=== PATIENT | female | born 1965 | race Caucasian/White ===

== ENCOUNTER 2019-03-28 10:18 | Emergency (ER) | payer MEDICARE, SELFPAY ==
[2019-03-28] VITALS (8 sets, daily range): BP systolic 117–164; BP diastolic 64–127; PULSE 79–91; RESP 18–24; TEMP 36.4; O2SAT 96–99; BMI 31.6
--- NOTE | 2019-03-28 10:30 | CTR_ITS ---
PROCEDURE INFORMATION: Exam: CT Abdomen And Pelvis With Contrast Exam date and time: 03/28/2019 10:31 AM Age: 54 years old Clinical indication: Constipation and other: Cant pee; Prior surgery; Surgery date: 6+ months; Surgery type: ; Additional info: Abdominal pain; Reports urinary retention; Constipation can't pee or poop for multiple days now TECHNIQUE: Imaging protocol: Computed tomography of the abdomen and pelvis with intravenous contrast. Total DLP: 1252.99 mGy-cm Radiation optimization: All CT scans at this facility use at least one of these dose optimization techniques: automated exposure control; mA and/or kV adjustment per patient size (includes targeted exams where dose is matched to clinical indication); or iterative reconstruction. Contrast material: OMNI 300; Contrast volume: 95 ml; Contrast route: IV; COMPARISON: CT Abdomen/Pelvis Renal [id number] 09/21/2017 9:26 AM FINDINGS: Lungs: No acute basilar lung consolidation. Liver: There is fatty change involving the liver parenchyma. Gallbladder and bile ducts: There is cholelithiasis. No gallbladder wall thickening. No pericholecystic fluid or inflammation. No biliary ductal dilatation. Pancreas: No pancreatic mass. No peripancreatic inflammation. No pancreatic ductal dilation. Spleen: The spleen is homogeneous and is not enlarged. Adrenals: No adrenal mass. Kidneys and ureters: No hydronephrosis or hydroureter. No renal or ureteral calculus. There is a 6 mm low-attenuation lesion in the right kidney, likely due to a small cyst. Stomach and bowel: No bowel obstruction. There is mural low-attenuation involving the proximal colon from the cecum to the hepatic flexure which can be due to chronic inflammatory bowel disease. No acute colitis or enteritis. No bowel obstruction. No diverticulitis. There is a moderate amount of stool within the colon and rectum. Appendix: The appendix has a normal caliber with no wall thickening. No periappendiceal stranding. Intraperitoneal space: No ascites or pneumoperitoneum. Vasculature: No abdominal aortic aneurysm. No iliac or common femoral artery aneurysm. The mesenteric arteries are patent. The mesenteric, portal, and hepatic veins are patent. Lymph nodes: No enlarged lymph nodes. Bladder: No urinary bladder calculus or wall thickening. The bladder is not distended. Reproductive: The uterus is located to the left of midline. There is a dominant mass in the uterus measuring approximately 5.8 cm in size. This is felt to have been present before and is most likely due to uterine leiomyoma. Bones/joints: Disc degeneration and facet arthropathy in the lumbar spine most prominent at L5-S1. Bilateral hip joint degeneration. Soft tissues: Unremarkable. CT/CT abdomen pelvis w con* [id number] IMPRESSION: 1. No bowel obstruction, acute colitis or diverticulitis. 2. No urinary tract calculus or obstruction. 3. Cholelithiasis without acute cholecystitis. COMMENT: Consistent with the [employer]'s Incidental Findings Committee white paper (J Am Rafia Radiol 2018): Any incidental cystic renal lesion classified in this report as too small to characterize or simple appearing is likely a benign cyst. No follow-up imaging is recommended for these lesions per consensus recommendations based on imaging criteria. Radiation Dose CTDIVOL = (mGy): DLP = 1252.99 (mGy-cm)
--- NOTE | 2019-03-28 10:39 | PC.NURSE ---
Pt to CT
[2019-03-28 10:46] LABS: Basophils % 0.3 %; Eosinophils # 0.1 10^3/uL (0.0-0.8); Eosinophils % 2.2 %; Hematocrit 40.8 % (37.0-47.0); Hemoglobin 13.2 g/dL (11.5-15.3); Lymphocytes # 1.3 10^3/uL (0.8-4.8); Lymphocytes % 20.2 %; Mean Corpuscular HGB Conc 32.4 g/dL (30.0-36.0); Mean Corpuscular Volume 89.7 fL (81-99); Mean Platelet Volume 10.8 fL (7.4-10.4); Monocytes # 0.3 10^3/uL (0.2-0.9); Neutrophils # 4.5 10^3/uL (1.8-7.7); Nucleated Red Blood Cells % 0 %; Platelet Count 250 10^3/cmm (130-400); Red Blood Count 4.55 10^6/uL (4.1-5.3); Red Cell Distribution Width 13.3 % (12.1-15.1); White Blood Count 6.3 10^3/uL (4.0-10.0)
[2019-03-28 11:00] LABS: Alanine Aminotransferase 17 U/L (0-33); Albumin Level 4.4 g/dL (3.5-5.2); Alkaline Phosphatase 84 IU/L (35-105); Anion Gap 13.1 (5-19); Aspartate Amino Transferase 15 U/L (0-32); Blood Urea Nitrogen 19 mg/dL (6-20); Calcium 9.5 mg/dL (8.5-10.5); Carbon Dioxide 27 mmol/L (22-29); Chloride 103 mmol/L (98-107); Globulin 2.5 g/dL (1.3-4.6); Glomerular Filtration Rate 86.9 mL/min (90-130); Glucose 151 mg/dL (74-109); Lipase 233 U/L (13-60); Potassium 4.1 mmol/L (3.5-5.1); Sodium 139 mmol/L (136-145); Total Bilirubin 0.3 mg/dL (0.15-1.2); Total Protein 6.9 g/dL (6.6-8.7)
[2019-03-28] MEDS: iohexol 300 mg/mL 100 mL Btl IV (11:06)
[2019-03-28 11:51] LABS: Add Urine Microscopic? NO
[2019-03-28 11:57] LABS: Bilirubin Urine Neg (NEGATIVE); Blood Urine Neg (Negative); Glucose Urine UA Norm (Normal); Ketones Urine Negative (Negative); Leukocyte Esterase Urine Negative (Negative); Nitrate Urine Negative (Negative); Protein Urine Neg (Negative); Urine Appearance Clear (CLEAR); Urine Color Straw (Yellow); Urobilinogen Urine Norm (Negative); pH Urine 5 (5-7)
--- NOTE | 2019-03-28 12:49 | USR_ITS ---
PROCEDURE INFORMATION: Exam: US Pelvis Complete, Transabdominal Exam date and time: 03/28/2019 2:00 PM Age: 54 years old Clinical indication: Pelvic pain; Additional info: R uterine mass TECHNIQUE: Imaging protocol: Real-time transabdominal pelvic ultrasound with image documentation. Complete exam. COMPARISON: US pelvic with transvaginal 06/17/2017 10:14 AM FINDINGS: Uterus/cervix: Uterus measures 12.4 x 7.2 by 7.8 cm. There is a 4.9 x 4.4 cm heterogeneous, predominantly hypoechoic lesion in the uterine fundus consistent with a fibroid. Right adnexa: Right ovary is not optimally visualized secondary to body habitus of the patient. No abnormalities are seen. Measurements were not obtained. Left adnexa: Left ovary is not optimally visualized secondary to body habitus the. No abnormalities are seen. Measurements were not obtained. Free fluid: None. Bladder: There is a Georges catheter in the bladder. Other findings: Technically difficult study secondary to the body habitus of the patient. US/US pelvic with transvaginal IMPRESSION: There is a 4.9 cm uterine fibroid in the fundal region. Technically difficult study secondary to the body habitus of the patient. Ovaries were not well seen.
--- NOTE | 2019-03-28 14:15 | ED_ITS ---
HPI - General Adult General: Chief complaint: General Medical Stated complaint: CANT PEE OR BM Time Seen by Provider: 03/28/19 10:19 Source: patient Mode of arrival: ambulatory Limitations: no limitations History of Present Illness: HPI narrative: Patient is a 54-year-old female who presents to ED today with complaints of not being able to urinate over the past 2 days; she states she is able to dribble a small amount; patient feels as if she needs to urinate but cannot; she does not complain of burning with urination, abnormal urine color or odor; she also states she is having difficulty with bowel movements and again feels like she needs to go but cannot; she complains of lower abdominal pain; no flank pain; no fever/chills Onset (ago): day(s) Location: abdomen Radiation: non-radiation Pain Consistency: constant Relieving factors: none Exacerbating factors: none Associated symptoms: Deny chest pain, dyspnea, headache(s), malaise, nausea, rash, palpitations, syncope or vomiting Treatments prior to arrival: none Review of Systems Const: Denies: fever, chills, body aches, change in appetite, fatigue or malaise Eyes: Denies: change in vision or blurry vision Card: Denies: chest pain, palpitations, irregular heart rhythm, lightheadedness, syncope or shortness of breath on exertion Resp: Denies: shortness of breath, productive cough or pain on inspiration GI: Reports: abdominal pain and constipation; Denies: nausea, vomiting, vomiting blood, difficulty swallowing, heartburn/indigestion, diarrhea, painful bowel movements, rectal pain, rectal swelling, blood in stool, black tarry stool or white/light colored stool : Reports: difficulty urinating; Denies: flank pain, painful urination, urinary frequency, urinary urgency, urinary hesitancy, urinary incontinence, vaginal bleeding, vaginal discharge or pelvic pain Musc: Denies: neck pain, back pain or joint pain Skin/Breast: Denies: rash Neuro: Denies: headache PFSH ED PFSH: Statuses (acute, chronic, etc) shown below reflect problem list status as previously entered and may not be historically accurate Social History Smoking and tobacco status: current every day smoker Female Reproductive History: Date of last menstrual period: 03/26/19 Physical Exam Const: COMMON NORMALS: no apparent distress, oriented x3, no limitations, alert and well nourished HENMT: COMMON NORMALS: normocephalic and head/scalp atraumatic HEAD & SCALP: normocephalic and atraumatic Neck/C-Spine: COMMON NORMALS: full ROM, no lymphadenopathy, supple and no meningeal signs Resp: COMMON NORMALS: normal respiratory effort and clear to auscultation bilaterally AUSCULTATION: clear to auscultation bilaterally Cardio: COMMON NORMALS: regular rate and regular rhythm RATE: regular rate RHYTHM: regular rhythm GI: COMMON NORMALS: normal to inspection, nondistended, normoactive bowel sounds, soft to palpation and no hepatosplenomegaly AUSCULTATION: Yes normoactive bowel sounds PALPATION: Yes soft, Yes tender (lower abdomen ) and Yes no hepatosplenomegaly OTHER: distended bladder : COMMON NORMALS: Yes no CVA tenderness BLADDER/KIDNEY EXAM: Yes no CVA tenderness Back/Pelvis: COMMON NORMALS: no CVA tenderness and thoracic and lumbar spine normal to inspection Extremity: COMMON NORMALS: normal to inspection Neuro: COMMON NORMALS: oriented x3 SENSORIUM/ORIENTATION: Yes alert MENINGEAL SIGNS: Yes no meningeal signs Skin: COMMON NORMALS: no rashes or lesions noted GENERAL SKIN EXAM: no rashes or lesions noted Course ED course: pt bladder scanned and showed approximately 470ml of urine present in bladder Vital Signs: Vital signs: Vital Signs Temperature 97.5 F L 03/28/19 10:22 Pulse Rate 85 03/28/19 15:52 Respiratory Rate 18 03/28/19 15:52 Blood Pressure 144/83 03/28/19 15:52 Pulse Oximetry 96 03/28/19 15:52 MDM - General Adult MDM Narrative: Medical decision making narrative: Labs all appear benign today; she does have an elevated lipase however does not have pain to her left upper quadrant and there is no signs of pancreatitis on her CT scan; there is no infection present on her UA; patient does have a large uterine mass present on her CT scan that has been present previously; I spoke to the radiologist who thought that mass was too superior to be causing a urinary outlet obstruction; Jesus Alberto choi was placed here due to her urinary retention; we will have case management set her up with Dr. Smith for further evaluation; a referral to [facility] may be recommended if he feels uterine mass is contributing to her retention. Lab Data: Labs: Lab Results 03/28/19 03/28/19 03/28/19 Range/Units 10:38 10:38 11:15 WBC 6.3 (4.0-10.0) 10^3/ uL RBC 4.55 (4.1-5.3) 10^6/u L Hgb 13.2 (11.5-15.3) g/dL Hct 40.8 (37.0-47.0) % MCV 89.7 (81-99) fL MCH 29.0 (28.0-34.0) pg MCHC 32.4 (30.0-36.0) g/dL RDW 13.3 (12.1-15.1) % Plt Count 250 (130-400) 10^3/c mm MPV 10.8 H (7.4-10.4) fL Neut % (Auto) 72.0 % Lymph % (Auto) 20.2 % [place] % (Auto) 5.0 % Eos % (Auto) 2.2 % Baso % (Auto) 0.3 % Neut # (Auto) 4.5 (1.8-7.7) 10^3/u L Lymph # (Auto) 1.3 (0.8-4.8) 10^3/u L [place] # (Auto) 0.3 (0.2-0.9) 10^3/u L Eos # (Auto) 0.1 (0.0-0.8) 10^3/u L Baso # (Auto) 0.0 (0.0-0.1) 10^3/u L Nucleated RBC % (a uto) 0 % Nucleated RBCs # 0.0 /100WBC Sodium 139 (136-145) mmol/L Potassium 4.1 (3.5-5.1) mmol/L Chloride 103 (98-107) mmol/L Carbon Dioxide 27 (22-29) mmol/L Anion Gap 13.1 (5-19) BUN 19 (6-20) mg/dL Creatinine 0.7 (0.5-0.9) mg/dL GFR Calculation 86.9 L (90-130) mL/min Glucose 151 H (74-109) mg/dL Calcium 9.5 (8.5-10.5) mg/dL Total Bilirubin 0.3 (0.15-1.2) mg/dL AST 15 (0-32) U/L ALT 17 (0-33) U/L Alkaline Phosphata se 84 (35-105) IU/L Total Protein 6.9 (6.6-8.7) g/dL Albumin 4.4 (3.5-5.2) g/dL Globulin 2.5 (1.3-4.6) g/dL Lipase 233 H (13-60) U/L Urine Color Straw (Yellow) Urine Appearance Clear (CLEAR) Urine pH 5 (5-7) Ur Specific Gravit y 1.020 (1.005-1.030) Urine Protein Neg (Negative) Urine Glucose (UA) Norm (Normal) Urine Ketones Negative (Negative) Urine Occult Blood Neg (Negative) Urine Nitrate Negative (Negative) Urine Bilirubin Neg (NEGATIVE) Urine Urobilinogen Norm (Negative) mg/dL Ur Leukocyte Gena ase Negative (Negative) Imaging Data^: CT Abd/Pel: Radiologist's impression: [place] [address] CT Scan Report Signed with Addenda Patient: Michelle Neves Unit #: [id number] : 1965 Age/Sex: 54 / F ADM Date: 03/28/19 Loc: ER Room/Bed: Attending Dr: Ordering Provider/Ordering MD: Shannan Irving Date of Service: 03/28/19 Procedure(s): CT abdomen pelvis w con* [id number] Accession Number(s): [id number] Report Number: [id number]/CT abdomen pelvis w con* [id number] Findings were discussed with Shannan Irving at 03/28/2019 1:01 PM [employer]. Radiation Dose CTDIVOL = (mGy): DLP = 1252.99 (mGy-cm) Addendum Dictated By: Shamar Sam Addendum Signed By: Shamar Sam Signed Date/Time: 03/28/19 1306 Addendum Cosigned By: PROCEDURE INFORMATION: Exam: CT Abdomen And Pelvis With Contrast Exam date and time: 03/28/2019 10:31 AM Age: 54 years old Clinical indication: Constipation and other: Cant pee; Prior surgery; Surgery date: 6+ months; Surgery type: ; Additional info: Abdominal pain; Reports urinary retention; Constipation can't pee or poop for multiple days now TECHNIQUE: Imaging protocol: Computed tomography of the abdomen and pelvis with intravenous contrast. Total DLP: 1252.99 mGy-cm Radiation optimization: All CT scans at this facility use at least one of these dose optimization techniques: automated exposure control; mA and/or kV adjustment per patient size (includes targeted exams where dose is matched to clinical indication); or iterative reconstruction. Contrast material: OMNI 300; Contrast volume: 95 ml; Contrast route: IV; COMPARISON: CT Abdomen/Pelvis Renal [id number] 09/21/2017 9:26 AM FINDINGS: Lungs: No acute basilar lung consolidation. Liver: There is fatty change involving the liver parenchyma. Gallbladder and bile ducts: There is cholelithiasis. No gallbladder wall thickening. No pericholecystic fluid or inflammation. No biliary ductal dilatation. Pancreas: No pancreatic mass. No peripancreatic inflammation. No pancreatic ductal dilation. Spleen: The spleen is homogeneous and is not enlarged. Adrenals: No adrenal mass. Kidneys and ureters: No hydronephrosis or hydroureter. No renal or ureteral calculus. There is a 6 mm low-attenuation lesion in the right kidney, likely due to a small cyst. Stomach and bowel: No bowel obstruction. There is mural low-attenuation involving the proximal colon from the cecum to the hepatic flexure which can be due to chronic inflammatory bowel disease. No acute colitis or enteritis. No bowel obstruction. No diverticulitis. There is a moderate amount of stool within the colon and rectum. Appendix: The appendix has a normal caliber with no wall thickening. No periappendiceal stranding. Intraperitoneal space: No ascites or pneumoperitoneum. Vasculature: No abdominal aortic aneurysm. No iliac or common femoral artery aneurysm. The mesenteric arteries are patent. The mesenteric, portal, and hepatic veins are patent. Lymph nodes: No enlarged lymph nodes. Bladder: No urinary bladder calculus or wall thickening. The bladder is not distended. Reproductive: The uterus is located to the left of midline. There is a dominant mass in the uterus measuring approximately 5.8 cm in size. This is felt to have been present before and is most likely due to uterine leiomyoma. Bones/joints: Disc degeneration and facet arthropathy in the lumbar spine most prominent at L5-S1. Bilateral hip joint degeneration. Soft tissues: Unremarkable. CT/CT abdomen pelvis w con* [id number] IMPRESSION: 1. No bowel obstruction, acute colitis or diverticulitis. 2. No urinary tract calculus or obstruction. 3. Cholelithiasis without acute cholecystitis. COMMENT: Consistent with the [employer]'s Incidental Findings Committee white paper (J Am Rafia Radiol 2018): Any incidental cystic renal lesion classified in this report as too small to characterize or simple appearing is likely a benign cyst. No follow-up imaging is recommended for these lesions per consensus recommendations based on imaging criteria. Radiation Dose CTDIVOL = (mGy): DLP = 1252.99 (mGy-cm) Dictated By: Shamar Sam Signed By: Shamar Sam Signed Date/Time: 03/28/19 121 DD/ 121 Discharge Plan Discharge Patient Disposition: Home, Self-Care Clinical Impression: Acute urinary retention Fibroid, uterine Qualifiers: Uterine leiomyoma location: unspecified location Qualified Code(s): D25.9 - Leiomyoma of uterus, unspecified Condition: Stable Prescriptions: No Action metformin 500 mg Tablet 500 mg PO BID RF: 0 hydrochlorothiazide 25 mg Tablet 25 mg PO DAILY RF: 0 lisinopril 2.5 mg Tablet 2.5 mg PO BID RF: 0 metoprolol tartrate 25 mg Tablet 25 mg PO BID RF: 0 Discharge Orders: Discharge Order (Routine); Ordered 03/28/19 Ordered By: Shannan Irving Referrals: Chris Le MD [Primary Care Provider] - Activity Restrictions/Additional Instructions: As discussed you are being referred to Dr. Smith for urinary retention. Keep Georges in place until you are seen at his office. As we discussed the radiologist does not seem to think that your uterine fibroid is causing compression on your urinary system but Dr. Smith can further evaluate this. Discharge Date/Time: 03/28/19 15:45 Coding Level of Care Code ED Air Lift Operator for Chg Fwd Exam Problem Focused
[2019-03-28] MEDS: ondansetron 2 mg/ML SDV 2 mL 4 MG IVP (14:17)
[2019-03-28] MEDS: morphine 4 mg/mL SDV 1 mL IVP (14:18)
--- NOTE | 2019-03-30 09:23 | DCPLANNER ---
lan manager had message to schedule a follow up appointment for patient with Dr. Smith. lan manager called the office of Dr. Smith, spoke with Cassandra. lan manager gave clinic patients information, case coordinator was told that patients information would be printed and given to Eva for review. Clinic will call patient with appointment information. lan manager will call for appointment information.
--- NOTE | 2019-03-31 13:57 | DCPLANNER ---
Patient has a follow up appointment scheduled for 04.16.19 at 10:[address] Smith. Clinic will call patient with appointment information.
--- NOTE | 2019-04-23 14:40 | DCPLANNER ---
Patient did attend appointment scheduled for 04.16.[address] Smith.
== END 2019-03-28 15:45 | disposition home or self-care (01) ==
PROVIDERS: Emergency Provider Physician Assistant; Family Provider Family Medicine; PCP Family Medicine
DX: D25.9 Leiomyoma of uterus, unspecified (principal); R33.9 Retention of urine, unspecified; Z79.84 Long term (current) use of oral hypoglycemic drugs; F17.210 Nicotine dependence, cigarettes, uncomplicated
CPT/HCPCS: 36415; 51702; 74177; 76830; 76856; 80053; 81003; 83690; 85025; 96374; 99282; J2270; J2405; Q9967

== ENCOUNTER → 2019-05-20 11:48 | Outpatient (BNVA) | payer MEDICARE, SELFPAY | PROVIDERS: Family Provider Family Medicine; PCP Family Medicine; Visit Provider Nurse Practitioner Family | DX: Z00.00 Encounter for general adult medical examination without abnormal findings (principal); Z12.11 Encounter for screening for malignant neoplasm of colon; E11.9 Type 2 diabetes mellitus without complications; I10 Essential (primary) hypertension; F17.200 Nicotine dependence, unspecified, uncomplicated | CPT/HCPCS: 80053; 80061; 82044; 83036; 85025 ==

== ENCOUNTER → 2020-07-04 15:10 | Outpatient (BNVA) | payer MEDICARE, SELFPAY | PROVIDERS: Family Provider Family Medicine; PCP Family Medicine; Visit Provider Nurse Practitioner Family | DX: M25.551 Pain in right hip (principal); G89.29 Other chronic pain | CPT/HCPCS: 73502 ==

== ENCOUNTER → 2020-08-22 13:10 | Outpatient (BNVA) | payer MEDICARE, SELFPAY | PROVIDERS: Family Provider Family Medicine; PCP Family Medicine; Visit Provider Orthopaedic Surgery | DX: Z01.812 Encounter for preprocedural laboratory examination (principal); Z20.822 Contact with and (suspected) exposure to COVID-19 | CPT/HCPCS: 87635 ==

== ENCOUNTER → 2020-08-31 11:47 | Outpatient (BNVA) | payer MEDICARE, SELFPAY | PROVIDERS: Family Provider Family Medicine; PCP Family Medicine; Visit Provider Nurse Practitioner Family | DX: Z12.39 Encounter for other screening for malignant neoplasm of breast (principal); Z78.0 Asymptomatic menopausal state; E11.65 Type 2 diabetes mellitus with hyperglycemia; I10 Essential (primary) hypertension; L40.9 Psoriasis, unspecified; Z00.00 Encounter for general adult medical examination without abnormal findings; Z12.11 Encounter for screening for malignant neoplasm of colon; F17.200 Nicotine dependence, unspecified, uncomplicated | CPT/HCPCS: 80053; 80061; 82043; 83036; 84443; 85025 ==

== ENCOUNTER 2020-10-30 23:04 | Emergency (ER) | payer MEDICARE, SELFPAY ==
[2020-10-30 23:07] VITALS: BP 192/79; PULSE 86; RESP 18; TEMP 36.5; O2SAT 95; BMI 32.4
--- NOTE | 2020-10-30 23:17 | CTR_ITS ---
PROCEDURE INFORMATION: Exam: CT Abdomen And Pelvis Without Contrast Exam date and time: 10/30/2020 11:17 PM Age: 55 years old Clinical indication: Abdominal pain; Flank; Right; Additional info: Flank pain TECHNIQUE: Imaging protocol: Computed tomography of the abdomen and pelvis without contrast. Radiation optimization: All CT scans at this facility use at least one of these dose optimization techniques: automated exposure control; mA and/or kV adjustment per patient size (includes targeted exams where dose is matched to clinical indication); or iterative reconstruction. COMPARISON: CT abdomen pelvis w con* [id number] 03/28/2019 11:00 AM RADIATION DOSE METRICS: Total DLP (mGy-cm): 1646.78 FINDINGS: Liver: Hepatic steatosis. Gallbladder and bile ducts: Cholelithiasis is noted. Gallbladder is otherwise unremarkable with normal wall thickness and volume. No pericholecystic reactive change. Pancreas: Normal. No ductal dilation. Spleen: Normal. No splenomegaly. Adrenal glands: Normal. No mass. Kidneys and ureters: Obstructing right ureteral calculus is seen approximately 4 cm from the right ureterovesical junction. Calculus is not visible on injection specialist image and measures approximately 2 mm greatest dimension. Mild dilation of right renal collecting system. Left renal calculi are also noted with largest measuring 3 mm. Stomach and bowel: Submucosal fatty deposits within the colon are nonspecific.. Appendix: No evidence of appendicitis. Intraperitoneal space: Unremarkable. No free air. No significant fluid collection. Vasculature: Vascular calcifications are noted. No abdominal aortic aneurysm. Lymph nodes: Unremarkable. No enlarged lymph nodes. Urinary bladder: Unremarkable as visualized. Reproductive: Stable uterine prominence. Bones/joints: No acute fracture. Soft tissues: Unremarkable. CT/CT kidney stone [id number] IMPRESSION: Obstructing distal right ureteral calculus. Left renal calculi. Hepatic steatosis. Cholelithiasis. Radiation Dose CTDIVOL = (mGy): DLP = 1646.78 (mGy-cm)
--- NOTE | 2020-10-30 23:25 | W.ED.GENADLT ---
HPI - General Adult General: Chief complaint: General Medical Stated complaint: Kidney Stones Time Seen by Provider: 10/30/20 23:06 Source: patient Mode of arrival: ambulatory Limitations: no limitations History of Present Illness: HPI narrative: 55-year-old female states she been having right-sided flank pain and abdominal pain. She states she does have a history of kidney stones the last 1 being a few years ago and states this is similar. States pain is sharp in nature and started all of a sudden and she has had nausea with a. Denies any worsening improving factors. Denies any fevers. Associated symptoms: Reports nausea and vomiting; Deny chest pain, dyspnea, headache(s) or rash Review of Systems Const: Denies: fever(s), chills, body aches or change in appetite Eyes: Denies: blurry vision or eye discomfort ENMT: Denies: throat pain or dental pain Card: Denies: chest pain Resp: Denies: dyspnea GI: Reports: abdominal pain, nausea and vomiting : Denies: dysuria Musc: Denies: neck pain or back pain Skin/Breast: Denies: rash Neuro: Denies: headache(s) Psych: Denies: depression Dipak/Lymph: Denies: easy bruising All/Imm: Denies: urticaria PFSH ED PFSH: Medical History (Updated 10/31/20 @ 00:58 by Ayla Charlton MD) CVA (cerebral vascular accident) Diabetes mellitus Hypertension Right renal stone Urinary retention Uterine fibroid Surgical History H/O section Hx of colonoscopy (~1994) Family History Mother , 70 Diabetes CAD (coronary artery disease) Social History Smoking and tobacco status: current every day smoker cigarettes Packs smoked per day: 1 Years cigarettes smoked: 40 Second hand smoke exposure: Yes Alcohol intake: never Lives independently: Yes Household members: spouse Marital status: Current occupational status: disabled History of recent travel: No Current gender identity: Female Special sophie needs: No Agree to transfusion: Yes Female Reproductive History: Date of last menstrual period: 09/04/20 Physical Exam Const: COMMON NORMALS: no acute distress, patient oriented x3 and healthy appearing HENMT: COMMON NORMALS: normocephalic and atraumatic HEAD & SCALP: normocephalic and atraumatic Eye: COMMON NORMALS: Equal, round and reactive pupils present and EOMs intact bilaterally PUPIL: Yes Equal, round and reactive pupils present Neck/C-Spine: COMMON NORMALS: full ROM and supple Chest: COMMONS NORMALS: normal inspection of the chest and normal palpation of entire chest wall Resp: COMMON NORMALS: normal respiratory effort, No retractions, No use of accessory muscles and clear to auscultation bilaterally AUSCULTATION: clear to auscultation bilaterally Cardio: COMMON NORMALS: regular rate, regular rhythm and No murmurs present (Cardio) RATE: regular rate RHYTHM: regular rhythm GI: COMMON NORMALS: Normal to inspection, nondistended, normoactive bowel sounds present, Soft to palpation, non-tender and no masses PALPATION: Yes Soft to palpation Extremity: COMMON NORMALS: normal to inspection and full ROM Neuro: COMMON NORMALS: patient oriented x3, moves all extremities and no focal motor deficits Psych: COMMON NORMALS: mental status grossly normal, Normal thought process present and cooperative THOUGHT PROCESS: Normal thought process present Skin: COMMON NORMALS: no rashes or lesions noted and no wounds GENERAL SKIN EXAM: no rashes or lesions noted Course Vital Signs: Vital signs: Vital Signs Temperature 97.7 F 10/30/20 23:07 Pulse Rate 81 10/31/20 00:14 Respiratory Rate 17 10/31/20 00:14 Blood Pressure 150/91 10/31/20 00:14 Pulse Oximetry 92 10/31/20 00:14 MDM - General Adult MDM Narrative: Medical decision making narrative: Patient presents here with right-sided flank pain likely from a kidney stone. Patient's CT shows gallstones as well with no signs of cholecystitis and patient's blood work here is all normal. Stone is small and should be able to pass. Will start patient on pain meds and she is to follow-up with urology. She understands agrees to plan. Lab Data: Labs: Lab Results 10/30/20 10/30/20 10/30/20 Range/Units 23:20 23:37 23:37 WBC 11.0 H (4.0-10.0) 10^3/ uL RBC 4.54 (4.1-5.3) 10^6/u L Hgb 11.9 (11.5-15.3) g/dL Hct 38.3 (37.0-47.0) % MCV 84.4 (81-99) fl MCH 26.2 L (28.0-34.0) pg MCHC 31.1 (30.0-36.0) g/dL RDW 18.6 H (12.1-15.1) % Plt Count 316 (130-400) 10^3/c mm MPV 11.5 H (7.4-10.4) fL Neut % (Auto) 78.9 % Lymph % (Auto) 13.2 % [place] % (Auto) 5.4 % Eos % (Auto) 1.7 % Baso % (Auto) 0.5 % Neut # (Auto) 8.70 H (1.8-7.7) 10^3/u L Lymph # (Auto) 1.5 (0.8-4.8) 10^3/u L [place] # (Auto) 0.6 (0.2-0.9) 10^3/u L Eos # (Auto) 0.2 (0.0-0.8) 10^3/u L Baso # (Auto) 0.1 (0.0-0.1) 10^3/u L Nucleated RBC % (a uto) 0 % Nucleated RBCs # 0.0 /100WBC Sodium 140 (136-145) mmol/L Potassium 4.0 (3.5-5.1) mmol/L Chloride 103 (98-107) mmol/L Carbon Dioxide 24 (22-29) mmol/L Anion Gap 17.0 (5-19) BUN 16 (6-20) mg/dL Creatinine 1.1 H (0.5-0.9) mg/dL GFR Calculation 51.4 L (90-130) mL/min Glucose 212 H (65-115) mg/dL Calculated Osmolal ity 297 H (285-295) mOsm/k g Calcium 9.3 (8.5-10.5) mg/dL Total Bilirubin 0.2 (0.15-1.2) mg/dL AST 14 (0-32) U/L ALT 14 (0-33) U/L Alkaline Phosphata se 99 (35-105) IU/L Total Protein 6.9 (6.6-8.7) g/dL Albumin 4.1 (3.5-5.2) g/dL Globulin 2.8 (1.3-4.6) g/dL Lipase 59 (13-60) U/L Urine Color Yellow (Yellow) Urine Appearance Sl cloudy A (CLEAR) Urine pH 5 (5-7) Ur Specific Gravit y 1.020 (1.005-1.030) Urine Protein Trace (Negative) Urine Glucose (UA) Norm (Normal) Urine Ketones 1+ H (Negative) Urine Blood 3+ H (Negative) Urine Nitrate Negative (Negative) Urine Bilirubin Neg (Negative) Urine Urobilinogen Norm (Negative) mg/dL Ur Leukocyte Gena ase Negative (Negative) Urine RBC 25-40 H (0-2) /hpf Urine WBC 0-4 H (0-5) /hpf Ur Squamous Epith Cells 5-10 H (0-5) /hpf Amorphous Sediment Not Reportable Urine Bacteria 1+ H (NONE) /hpf Imaging Data^: CT Abd/Pel: Attestation: I personally reviewed and interpreted this imaging study as follows: Radiologist's impression: [address] [facility] [place] [address] CT Scan Report Signed Patient: Michelle Neves Unit #: [id number] : 1965 Age/Sex: 55 / F ADM Date: 10/30/20 Loc: ER Room/Bed: Attending Dr: Ordering Provider/Ordering MD: Ayla Charlton MD Date of Service: 10/30/20 Procedure(s): CT kidney stone 57924 Accession Number(s): [id number] Report Number: [id number] PROCEDURE INFORMATION: Exam: CT Abdomen And Pelvis Without Contrast Exam date and time: 10/30/2020 11:17 PM Age: 55 years old Clinical indication: Abdominal pain; Flank; Right; Additional info: Flank pain TECHNIQUE: Imaging protocol: Computed tomography of the abdomen and pelvis without contrast. Radiation optimization: All CT scans at this facility use at least one of these dose optimization techniques: automated exposure control; mA and/or kV adjustment per patient size (includes targeted exams where dose is matched to clinical indication); or iterative reconstruction. COMPARISON: CT abdomen pelvis w con* [id number] 03/28/2019 11:00 AM RADIATION DOSE METRICS: Total DLP (mGy-cm): 1646.78 FINDINGS: Liver: Hepatic steatosis. Gallbladder and bile ducts: Cholelithiasis is noted. Gallbladder is otherwise unremarkable with normal wall thickness and volume. No pericholecystic reactive change. Pancreas: Normal. No ductal dilation. Spleen: Normal. No splenomegaly. Adrenal glands: Normal. No mass. Kidneys and ureters: Obstructing right ureteral calculus is seen approximately 4 cm from the right ureterovesical junction. Calculus is not visible on window shade cutter and mounter image and measures approximately 2 mm greatest dimension. Mild dilation of right renal collecting system. Left renal calculi are also noted with largest measuring 3 mm. Stomach and bowel: Submucosal fatty deposits within the colon are nonspecific.. Appendix: No evidence of appendicitis. Intraperitoneal space: Unremarkable. No free air. No significant fluid collection. Vasculature: Vascular calcifications are noted. No abdominal aortic aneurysm. Lymph nodes: Unremarkable. No enlarged lymph nodes. Urinary bladder: Unremarkable as visualized. Reproductive: Stable uterine prominence. Bones/joints: No acute fracture. Soft tissues: Unremarkable. CT/CT kidney stone [id number] IMPRESSION: Obstructing distal right ureteral calculus. Left renal calculi. Hepatic steatosis. Cholelithiasis. Radiation Dose CTDIVOL = (mGy): DLP = 1646.78 (mGy-cm) Dictated By: Darrell Stanley MD Signed By: Darrell Stanley MD Signed Date/Time: 10/31/2049 DD/ 0049 Discharge Plan Discharge Patient Disposition: Home Clinical Impression: Kidney stone on right side Condition: Stable Prescriptions: New hydrocodone-acetaminophen 5-325 mg tablet 1 tab PO Q6H PRN (Reason: pain) Qty: 14 RF: 0 ondansetron 4 mg tablet,disintegrating 4 mg PO Q6H PRN (Reason: nausea and vomiting) Qty: 14 RF: 0 No Action multivitamin Tablet 1 tab PO DAILY RF: 0 ascorbate calcium (vitamin C) 500 mg tablet 500 mg PO DAILY RF: 0 meloxicam 15 mg tablet 15 mg PO DAILY Qty: 30 RF: 3 mupirocin 2 % ointment 1 applic topical BID Qty: 22 RF: 0 montelukast 10 mg tablet 10 mg PO DAILY Qty: 90 RF: 1 triamcinolone acetonide 0.1 % cream See Rx Instructions .ROUTE .COMPLEX Qty: 80 RF: 2 methotrexate sodium 2.5 mg tablet 10 mg PO .every Friday Qty: 16 RF: 0 hydrochlorothiazide 25 mg Tablet 25 mg PO DAILY RF: 0 metoprolol tartrate 25 mg Tablet 50 mg PO BID RF: 0 Protonix 40 mg tablet,delayed release (DR/EC) 40 mg PO DAILY RF: 0 folic acid 1 mg tablet 1 mg PO DAILY RF: 0 Lexapro 10 mg tablet 10 mg PO DAILY RF: 0 Discharge Orders: Discharge ED (Routine); Ordered 10/31/20 Ordered By: Ayla Charlton Referrals: Trino Smith MD [Physician] - 1-3 days Daysi Kilgore FNP [Primary Care Provider] - Discharge Diet: Advance as tolerated Discharge Activity: Resume usual activity Patient Instructions: Kidney Stones (ED), Opioid Safety Coding Level of Care Code ED Manager Hematology for Giag Fwd Exam Comprehensive
[2020-10-30] MEDS: ondansetron 2 mg/ML SDV 2 mL 4 MG IVP (23:38)
[2020-10-30 23:39] VITALS: RESP 21
[2020-10-30] MEDS: HYDROmorphone 1 mg/mL INJ 1 mL IVP (23:39)
[2020-10-30 23:40] LABS: Glucose Urine UA Norm (Normal); Ketones Urine 1+ (Negative); Protein Urine Trace (Negative); Urine Color Yellow (Yellow); pH Urine 5 (5-7)
[2020-10-30] MEDS: sodium chloride 0.9% 1,000 ML 999 ML IV (23:40)
[2020-10-30 23:41] LABS: Add Urine Culture? No; Add Urine Microscopic? YES; Bacteria Urine 1+ /hpf; Bilirubin Urine Neg (Negative); Blood Urine 3+ (Negative); Leukocyte Esterase Urine Negative (Negative); Nitrate Urine Negative (Negative); RBC Urine 25-40 /hpf (0-2); Urobilinogen Urine Norm (Negative); WBC Urine 0-4 /hpf (0-5)
[2020-10-31 00:14] VITALS: BP 150/91; PULSE 81; RESP 17; O2SAT 92
[2020-10-31 00:44] LABS: Basophils # 0.1 10^3/uL (0.0-0.1); Basophils % 0.5 %; Eosinophils # 0.2 10^3/uL (0.0-0.8); Eosinophils % 1.7 %; Hematocrit 38.3 % (37.0-47.0); Hemoglobin 11.9 g/dL (11.5-15.3); Lymphocytes # 1.5 10^3/uL (0.8-4.8); Lymphocytes % 13.2 %; Mean Corpuscular HGB Conc 31.1 g/dL (30.0-36.0); Mean Corpuscular Hemoglobin 26.2 pg (28.0-34.0); Mean Corpuscular Volume 84.4 fl (81-99); Mean Platelet Volume 11.5 fL (7.4-10.4); Monocytes # 0.6 10^3/uL (0.2-0.9); Monocytes % 5.4 %; Neutrophils % 78.9 %; Nucleated Red Blood Cells % 0 %; Platelet Count 316 10^3/cmm (130-400); Red Blood Count 4.54 10^6/uL (4.1-5.3); Red Cell Distribution Width 18.6 % (12.1-15.1)
[2020-10-31 00:59] LABS: Alanine Aminotransferase 14 U/L (0-33); Albumin Level 4.1 g/dL (3.5-5.2); Alkaline Phosphatase 99 IU/L (35-105); Aspartate Amino Transferase 14 U/L (0-32); Blood Urea Nitrogen 16 mg/dL (6-20); Calcium 9.3 mg/dL (8.5-10.5); Carbon Dioxide 24 mmol/L (22-29); Chloride 103 mmol/L (98-107); Globulin 2.8 g/dL (1.3-4.6); Glomerular Filtration Rate 51.4 mL/min (90-130); Glucose 212 mg/dL (65-115); Lipase 59 U/L (13-60); Osmolality Calculated 297 mOsm/kg (285-295); Sodium 140 mmol/L (136-145); Total Bilirubin 0.2 mg/dL (0.15-1.2); Total Protein 6.9 g/dL (6.6-8.7)
[2020-10-31] MEDS: ketorolac 30 mg/mL INJ 15 MG IVP (01:08)
[2020-10-31 01:53] VITALS: BP 139/76; PULSE 88; RESP 20; O2SAT 94
--- NOTE | 2020-10-31 15:02 | DCPLANNER ---
customer business manager had message to schedule a follow up appointment for patient with Dr. Smith. customer business manager called the office of Dr. Smith, spoke with Cassandra, gave clinic patients information. customer business manager was told that patients information would be printed and reviewed. Clinic will call patient with appointment information.
--- NOTE | 2020-11-01 07:46 | DCPLANNER ---
Patient had an appointment scheduled for 11.01.[address] Smith - appointment cancelled per office request.
== END 2020-10-31 01:54 | disposition home or self-care (01) ==
PROVIDERS: Emergency Provider Emergency Medicine; PCP Nurse Practitioner Family
DX: N20.2 Calculus of kidney with calculus of ureter (principal); E11.9 Type 2 diabetes mellitus without complications; I10 Essential (primary) hypertension; F17.210 Nicotine dependence, cigarettes, uncomplicated
CPT/HCPCS: 74176; 80053; 81001; 83690; 85025; 96361; 96374; 96375; 99284; J1170; J1885; J2405; J7030

== ENCOUNTER → 2020-12-07 12:02 | Outpatient (BNVA) | payer MEDICARE, SELFPAY | PROVIDERS: PCP Nurse Practitioner Family; Visit Provider Nurse Practitioner Family | DX: N93.9 Abnormal uterine and vaginal bleeding, unspecified (principal); L30.4 Erythema intertrigo | CPT/HCPCS: 80053; 81003; 83001; 84146; 84443; 85025 ==

== ENCOUNTER → 2020-12-27 11:20 | Outpatient (BNVA) | payer MEDICARE, SELFPAY | PROVIDERS: PCP Nurse Practitioner Family; Visit Provider Orthopaedic Surgery | DX: Z20.822 Contact with and (suspected) exposure to COVID-19 (principal) | CPT/HCPCS: 87635 ==

== ENCOUNTER 2021-01-01 09:37 | Observation (INO) | payer MEDICARE, SELFPAY ==
[2020-10-13 10:32] VITALS: BMI 32.9
[2020-10-13 11:18] LABS: Anion Gap 14.3 (5-19); Blood Urea Nitrogen 12 mg/dL (6-20); Calcium 8.2 mg/dL (8.5-10.5); Carbon Dioxide 27 mmol/L (22-29); Chloride 103 mmol/L (98-107); Glomerular Filtration Rate 103.4 mL/min (90-130); Glucose 137 mg/dL (65-115); Osmolality Calculated 292 mOsm/kg (285-295); Potassium 4.3 mmol/L (3.5-5.1); Sodium 140 mmol/L (136-145)
--- NOTE | 2020-10-13 13:38 | ANES.PREANE2 ---
Pre-Anesthetic Assessment Pre-Anesthetic Assessment: Height/Weight: Height 1.65 m Weight 89.811 kg Proposed Procedure: Operation Date: 10/23/20 12:50 Proposed Procedures p right Total Hip Arthroplasty 69428 M16.11(Right) - Dallas Saravia MD Was Beta Wyatt taken within 24 hours: N/A Was Clonidine taken within 24 hours: N/A Social: Social History: Tobacco and No alcohol Exam: Pre-Anes Outpt Exam: alert, oriented x 3 and regular rate & rhythm Airway: Submandibular: WNL Cervical ROM: WNL MP: 2 Dentition: Loose Additional comments: Very poor dentition, multiple missing Pulmonary: Pulmonary: COPD CV/HEM: CV/HEM: HTN GI: GI: GERD Metabolic: Metabolic: DM and Morbid obesity Musc/skel: Musc/skel: Lower Back Pain and OA/DJD Anesthetic Plan: ASA status: 3 Anesthesia: Regional (specify below) (SAB) Risk of > 500 ml blood loss (7ml/kg in children): Yes, adequate IV access and fluids planned PFSH Anesthesia PFSH: Medical History CVA (cerebral vascular accident) Diabetes mellitus Hypertension Right renal stone Urinary retention Uterine fibroid Surgical History H/O section Hx of colonoscopy (~1994) Family History Mother , 70 Diabetes CAD (coronary artery disease) Social History Smoking and tobacco status: current every day smoker cigarettes Packs smoked per day: 1 Years cigarettes smoked: 40 Second hand smoke exposure: Yes Alcohol intake: never Lives independently: Yes Household members: spouse Marital status: Current occupational status: disabled History of recent travel: No Current gender identity: Female Special sophie needs: No Agree to transfusion: Yes Female Reproductive History: Date of last menstrual period: 09/04/20 Data Anesthesia CBC & Chem 7: 10/13/20 10:55 Other Labs: Laboratory Results - last 48 hr 10/13/20 10:55 Sodium 140 Potassium 4.3 Chloride 103 Carbon Dioxide 27 Anion Gap 14.3 BUN 12 Creatinine 0.6 GFR Calculation 103.4 Glucose 137 H Calculated Osmolality 292 Calcium 8.2 L Cardiac Studies: No Data to Display
[2020-12-27 10:50] VITALS: BMI 32.9
--- NOTE | 2020-12-27 16:27 | ANES.PREANE2 ---
Pre-Anesthetic Assessment Pre-Anesthetic Assessment: Height/Weight: Height 1.65 m Weight 89.811 kg Proposed Procedure: Operation Date: 01/01/21 07:00 Proposed Procedures p right Total Hip Arthroplasty 77821 M16.11(Right) - Dallas Saravia MD Was Beta Wyatt taken within 24 hours: Yes Was Clonidine taken within 24 hours: N/A Social: Social History: Tobacco and No alcohol Exam: Pre-Anes Outpt Exam: alert, oriented x 3 and regular rate & rhythm Airway: Submandibular: WNL Cervical ROM: WNL MP: 2 Dentition: Loose Additional comments: Very poor dentition, multiple missing Pulmonary: Pulmonary: COPD CV/HEM: CV/HEM: HTN GI: GI: GERD Metabolic: Metabolic: DM and Morbid obesity Musc/skel: Musc/skel: Lower Back Pain and OA/DJD Anesthetic Plan: ASA status: 3 Anesthesia: Regional (specify below) (SAB) Risk of > 500 ml blood loss (7ml/kg in children): Yes, adequate IV access and fluids planned PFSH Anesthesia PFSH: Medical History CVA (cerebral vascular accident) Diabetes mellitus Hypertension Right renal stone Urinary retention Uterine fibroid Surgical History H/O section Hx of colonoscopy (~1994) Family History Mother , 70 Diabetes CAD (coronary artery disease) Social History Second hand smoke exposure: Yes Alcohol intake: never Lives independently: Yes Household members: spouse Marital status: Current occupational status: disabled History of recent travel: No Current gender identity: Female Special sophie needs: No Agree to transfusion: Yes Female Reproductive History: Date of last menstrual period: 09/04/20 Data Anesthesia CBC & Chem 7: 10/13/20 10:55 Cardiac Studies: No Data to Display
[2021-01-01] VITALS (29 sets, daily range): BP systolic 110–172; BP diastolic 63–106; PULSE 62–83; RESP 15–26; TEMP 36.1–36.9; O2SAT 91–100
[2021-01-01 06:12] LABS: OR HCG Qualitative Urine Negative (Negative)
--- NOTE | 2021-01-01 06:32 | P.ANESUD_ITS ---
Pre-Anesthetic Update Pre-Anesthetic Assessment: Date of Surgery/Procedure: 01/01/21 Preop Carlee gnosis: Osteoarthritis Right hip Proposed Procedure: Operation Date: 01/01/21 07:00 Proposed Procedures p right Total Hip Arthroplasty 17500 M16.11(Right) - Dallas Saravia MD Any changes to Pre-Anesthetic Assessment?: No Last Intake: Intake Last Liquid Date 12/31/20 Last Liquid Time 21:00 Last Solid Date 12/31/20 Last Solid Time 17:00 Labs Last 48hrs: Laboratory Results - last 48 hr 01/01/21 05:59 Urine HCG, Qual Negative Vitals: Temperature 98.4 F 01/01/21 06:06 Temperature Source Temporal Artery S can 01/01/21 06:06 Pulse Rate 78 01/01/21 06:06 Pulse Rhythm 01/01/21 06:06 Pulse Strength 3+ Normal 01/01/21 06:06 Respiratory Rate 18 01/01/21 06:06 Blood Pressure 171/94 01/01/21 06:06 Blood Pressure Ginny n 119 01/01/21 06:06 Pulse Oximetry 95 01/01/21 06:06 Oxygen Delivery Me thod 01/01/21 06:06 Exam: Pre-Anes Outpt Exam: alert, oriented x 3, clear to auscultation bilaterally and regular rate & rhythm Cardiac Studies: No Data to Display
[2021-01-01] MEDS: acetaminophen 500 mg Tablet 1000 MG PO ×3 (06:55→17:34)
[2021-01-01] MEDS: CELEcoxib 200 mg Capsule 400 MG PO (06:55)
[2021-01-01] MEDS: oxyCODONE 20 mg ER (12 HR) Tablet PO (06:56)
[2021-01-01] MEDS: gabapentin 300 mg Capsule PO ×2 (06:57→17:34)
[2021-01-01] MEDS: sodium chloride 0.9% 1,000 ML 30 ML IV (06:59)
--- NOTE | 2021-01-01 07:04 | W.PM.OPSFHP ---
Same Day Surgery H&P Indication for Procedure/HPI DATE OF PROCEDURE: January 01, 2021 CHIEF COMPLAINT/INDICATIONFOR SURGICAL PROCEDURE: Osteoarthritis right hip here for right total hip arthroplasty. Patient has failed conservative measures including anti-inflammatories. Significant functional limitations as can barely get through a large store such as [employer].Here for right total hip arthroplasty PREOP DIAGNOSIS: Osteoarthritis Right hip PLANNED PROCEDRUE: Operation Date: 01/01/21 07:00 Proposed Procedures p right Total Hip Arthroplasty 86271 M16.11(Right) - Dallas Saravia MD 1 year history of progressive hip pain secondary to osteoarthritis. Medications/Allergies* Home Medications Medication Instructions Recorded Confirmed Type ascorbate calcium (vitamin C) 500 500 mg PO DAILY 04/28/20 01/01/21 History mg tablet multivitamin 1 tab PO DAILY 04/28/20 12/27/20 History escitalopram oxalate [Lexapro] 10 mg PO DAILY 10/13/20 01/01/21 History pantoprazole [Protonix] 40 mg PO DAILY 10/13/20 01/01/21 History Allergies/Adverse Reactions Allergy/AdvReac Type Severity Reaction Status Date / Time doxycycline Allergy rash Verified 12/07/20 10:53 Penicillins Allergy ADR-Itching Verified 12/07/20 10:53 Current Medications: Generic Name Dose Route Start Last Admin Trade Name Freq PRN Reason Stop Dose Admin Sodium Chloride 1,000 mls @ 30 mls/hr 01/01/21 06:00 01/01/21 06:59 Sodium Chloride 0.9% IV 01/02/21 05:59 30 mls/hr .Q24H YOLI Administration Pertinent History/Comorbid Conditions* Medical History (Updated 12/07/20 @ 17:01 by FOREIGN Yancey) CVA (cerebral vascular accident) Diabetes mellitus Hypertension Right renal stone Urinary retention Uterine fibroid Surgical History (Updated 11/29/19 @ 21:13 by FOREIGN Yancey) H/O section Hx of colonoscopy (~1994) Family History (Updated 04/07/19 @ 14:51 by Celsa Guallpa RN) Mother, 70 Diabetes Mother CAD (coronary artery disease) Mother Social History Second hand smoke exposure: Yes Alcohol intake: never Lives independently: Yes Household members: spouse Marital status: Current occupational status: disabled History of recent travel: No Current gender identity: Female Special sophie needs: No Agree to transfusion: Yes Pertinent Exam Findings alert, oriented x 3 and clear to auscultation bilaterally Recommendations Surgery/Procedure today Coding Level of Care Code Acute 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
[2021-01-01] MEDS: tranexamic acid 1,000 mg/10mL SDV 1000 MG IV (07:35)
[2021-01-01] MEDS: fentaNYL 50 mcg/mL INJ 2mL IVP ×2 (09:36→09:48)
--- NOTE | 2021-01-01 09:39 | XRR_ITS ---
PROCEDURE INFORMATION: Exam: XR Pelvis Exam date and time: 01/01/2021 9:39 AM Age: 55 years old Clinical indication: Device placement; Other: Total hip arthroplasty; Prior surgery; Surgery date: Post-operative (0-2 days); Additional info: Total hip arthroplasty, ap right hip TECHNIQUE: Imaging protocol: XR pelvis. Views: 1 or 2 view. Total images: 1 COMPARISON: CR XR hip RT 2-3V wo/w pel* [id number] 07/04/2020 3:29 PM FINDINGS: Tubes, catheters and devices: The prosthesis appears near anatomic in positioning. No parallel lucencies adjacent to the prosthesis are seen to suggest loosening. No acute fractures, subluxation, nor dislocation. Bones/joints: Right hip arthroplasty is present. Soft tissues: Skin marlon subcutaneous emphysema are present from recent surgery. XR/XR pelvis 1-2V* [id number] IMPRESSION: Status post recent right hip arthroplasty without complication. Radiation Dose CTDIVOL = (mGy): DLP = (mGy-cm)
--- NOTE | 2021-01-01 09:40 | PM.OP ---
Operative Report Date of procedure: January 01, 2021 Pre-op Diagnosis: Osteoarthritis Right hip Post-op diagnosis: same Post-op Findings: Same Procedure Done: Right total hip arthroplasty Pathology: none sent Surgeon: Dallas Saravia Anesthesia: General Estimated blood loss (mL): 250 Complications: None Findings: Patient has degenerative changes consisting of sclerosis of the femoral head and peripheral osteophytes as well as sclerosis of the acetabulum no significant synovitis was identified suggestive of an inflammatory arthritis Condition: stable Disposition: PACU Procedure: The patient was taken to the operating room and anesthesia provided by the anesthesia service. The patient was placed in the lateral position on a beanbag. A timeout was performed. The patient was draped in the usual fashion. A 15 cm long incision was made beginning just proximal to the greater trochanter and extending posteriorly to a point just distal to the trochanter on the posterior border of the trochanter. Dissection was carried down with electrocautery through the subcutaneous fat to the fascia joaquin which was divided proximally and distally with curved scissors. The anterior two thirds of the gluteus medius and minimus were elevated off the hip with electrocautery. The capsule was divided in a H-like fashion. The hip was dislocated and a neck cut made just above the level of the lesser trochanter. Exposure of the acetabulum was facilitated with the acetabular retractors. Remnants of labrum and peripheral osteophytes were removed with electrocautery and a rongeur. A reamer 2 mm under the size the femoral head was utilized to ream medially to the base of the palm and are. Reaming was then increased in 1 mm intervals until a healthy rim a trabecular bone was encountered. A final Trident 2 acetabular cup 1 mm greater than the final reaming was press-fit into place. The ADM liner was secured. Attention was then focused on the femur. Sequential reaming was done under power until cortical chatter was encountered. Broaching was then accomplished until a stable broach size was obtained. A trial reduction with the head and neck provided excellent stability. The wound was irrigated with saline and antibiotic solution. The final Sameera SecureFit Max stem was press-fit into place. The femoral head was placed and the hip was reduced. The hip was brought through range of motion and found to be free of impingement and stable. The anterior capsule was reapproximated with 1 Ethibond. The gluteus medius and minimus were repaired through bone with 5 Ethibond and reinforced with 1 Ethibond. The fascial joaquin was closed with a running 0 Stratafix suture. Deep pelvic tissues were closed with 2-0 Stratafix and the skin with a running 4-0 l Stratafix. 1) Sameera 50 mm Trident 2 solid back acetabular shell 2) Size 3 Accolade II 132.5 degree neck angle SecureFit Max stem 3} 22.2 mm 0 LFIT V40 femoral head 4} MDM metal liner
[2021-01-01] MEDS: morphine 4 mg/mL SDV 1 mL 2 MG IVP ×2 (10:01→14:48)
--- NOTE | 2021-01-01 10:16 | PC.NURSE ---
Pulse present in right foot. Patients family attempted to be notified no answer and family not in the waiting room.
[2021-01-01] MEDS: sodium chloride 0.9% 1,000 ML 100 ML IV ×2 (11:00→19:16)
[2021-01-01] MEDS: oxyCODONE 5 mg IR Tab/Cap PO ×3 (11:08→21:47)
[2021-01-01] MEDS: CELEcoxib 200 mg Capsule PO ×2 (11:56→21:48)
--- NOTE | 2021-01-01 15:57 | PC.RESP ---
SMOKING CESSATION INFORMATION SENT TO PATIENT.
[2021-01-01] MEDS: metoprolol tartrate 50 mg Tablet PO (17:33)
[2021-01-01] MEDS: sennosides-docusate Tablet 2 TAB PO (17:36)
[2021-01-01] MEDS: clotrimazole-betamethasone cream 15gm 1 APPLIC TOPICAL (17:38)
[2021-01-01] MEDS: ondansetron 2 mg/ML SDV 2 mL 4 MG IVP (18:37)
--- NOTE | 2021-01-01 18:54 | ANE.PACU2 ---
Inpatient post-anesthesia follow up: Airway intact: Yes Vital signs: Temperature 97.4 F Pulse Rate 69 Respiratory Rate 20 Blood Pressure 135/73 Pulse Oximetry 98 Oxygen Delivery Me thod Nasal Cannula Oxygen Flow Rate 2 Fraction of Inspir ed Oxygen Hydration adequate: Yes Nausea and vomiting: No Pain level: 2 Mental status: Baseline
[2021-01-02] VITALS (7 sets, daily range): BP systolic 106–121; BP diastolic 70–74; PULSE 70–72; RESP 16–18; TEMP 36.4–36.6; O2SAT 96–97
[2021-01-02] MEDS: morphine 4 mg/mL SDV 1 mL 2 MG IVP (00:09)
[2021-01-02] MEDS: ondansetron 2 mg/ML SDV 2 mL 4 MG IVP (00:10)
--- NOTE | 2021-01-02 00:10 | PC.NURSE ---
pain and nausea medication admin for primary nurse
[2021-01-02 02:31] LABS: Hemoglobin 10.3 g/dL (11.5-15.3)
[2021-01-02] MEDS: oxyCODONE 5 mg IR Tab/Cap PO ×2 (02:42→09:18)
[2021-01-02] MEDS: acetaminophen 500 mg Tablet 1000 MG PO ×2 (02:43→09:17)
[2021-01-02] MEDS: sodium chloride 0.9% 1,000 ML 100 ML IV (05:25)
--- NOTE | 2021-01-02 06:03 | PC.NURSE ---
SHIFT SUMMARY Has done well tonight. Started out shift with c/o nausea and did have one emesis. Pt thought might have been taking pain meds on an empty stomach. Ate some jello, crackers and drank juice and was able to keep down. Through the night has received po OXYIR and scheduled Tylenol without any problems. Did receive IV Morphine X1. Has been up to BSC with nurse assist and walker. Did well. Has ABD pillow in place. Ice pack to right hip. Dressing to lat hip C&D. Some edema to RLE. Neurovascular check WNL. IV infusing at 100ml/hr rate and receiving postop IV antibiotics.
[2021-01-02] MEDS: clotrimazole-betamethasone cream 15gm 1 APPLIC TOPICAL (09:14)
[2021-01-02] MEDS: sennosides-docusate Tablet 2 TAB PO (09:15)
[2021-01-02] MEDS: CELEcoxib 200 mg Capsule PO (09:16)
[2021-01-02] MEDS: escitalopram 10 mg Tablet PO (09:16)
[2021-01-02] MEDS: pantoprazole DR 40 mg Tablet PO (09:16)
[2021-01-02] MEDS: hydroCHLOROthiazide 25 mg Tablet PO (09:17)
[2021-01-02] MEDS: gabapentin 300 mg Capsule PO (09:17)
[2021-01-02] MEDS: aspirin 325 mg EC Tablet PO (09:18)
[2021-01-02] MEDS: metoprolol tartrate 50 mg Tablet PO (09:18)
--- NOTE | 2021-01-02 10:35 | PM.DCS ---
Discharge Providers Date of Admission: 01/01/21 09:37 Date of Discharge: January 02, 2021 Attending Provider at Admission: Dallas Saravia MD Attending Provider at Discharge: Dallas Saravia MD Primary Care Provider: FOREIGN Yancey Reason for Visit Reason for Visit: right total hip arthroplasty Hospital Course Hospital Course The patient tolerated surgery well. They remained hemodynamically stable. They was begun on aspirin and sequential compression dressing for DVT prophylaxis. The patient was mobilized with therapy beginning the day of surgery and by the first postoperative day independent with the walker. As the pain was adequately controlled and they were fully mobile they were discharged home. Physical Exam Narrative: EXAM NARRATIVE: On the day of discharge the hip incision was clean. The incision was free of drainage. They had no particular swelling about the thigh or distal. No distal neurovascular deficits were noted. Discharge Data Data Completed and Pending: Completed Studies During Hospitalization Category Date Time Status XR pelvis 1-2V* 7 2170 Routine Exams 01/01/21 09:39 Completed Labs from last 24 hours 01/02/21 01:53 Hgb 10.3 L Vitals: Last Vital Signs Temp 97.9 F 01/02/21 08:00 Pulse 71 01/02/21 08:00 Resp 18 01/02/21 09:18 BP 106/72 01/02/21 08:00 Pulse Ox 96 01/02/21 08:00 Discharge Plan Discharge Patient Disposition: Home Condition: Stable Prescriptions: New oxycodone 5 mg Tablet 5 mg PO Q4H PRN (Reason: Moderate Pain) 7 Days Qty: 40 RF: 0 acetaminophen 500 mg Tablet 1,000 mg PO Q8H 14 Days Qty: 84 RF: 0 gabapentin 300 mg Capsule 300 mg PO BID 7 Days Qty: 14 RF: 0 aspirin 325 mg Tablet,Delayed Release (Dr/Ec) 325 mg PO DAILY 30 Days Qty: 30 RF: 0 celecoxib 200 mg Capsule 200 mg PO Q12H 14 Days Qty: 28 RF: 0 Continued multivitamin Tablet 1 tab PO DAILY RF: 0 ascorbate calcium (vitamin C) 500 mg tablet 500 mg PO DAILY RF: 0 clotrimazole-betamethasone 1-0.05 % cream 1 applic topical BID 14 Days Qty: 45 RF: 0 triamcinolone acetonide 0.1 % cream See Rx Instructions .ROUTE .COMPLEX Qty: 80 RF: 2 metoprolol tartrate 25 mg tablet 50 mg PO BID Qty: 180 RF: 0 hydrochlorothiazide 25 mg tablet 25 mg PO DAILY Qty: 90 RF: 0 methotrexate sodium 2.5 mg tablet 10 mg PO .every Friday Qty: 16 RF: 0 pantoprazole [Protonix] 40 mg tablet,delayed release (DR/EC) 40 mg PO DAILY RF: 0 escitalopram oxalate [Lexapro] 10 mg tablet 10 mg PO DAILY RF: 0 Held meloxicam 15 mg tablet 15 mg PO DAILY Qty: 30 RF: 3 Hold Instructions: Resume on 01/16/21. Discontinued mupirocin 2 % ointment 1 applic topical BID Qty: 22 RF: 0 Discharge Orders: Discharge Order (Routine); Ordered 01/02/21 Ordered By: Dallas Saravia Other Ambulatory Orders: Physical Therapy Eval and Treat Outpatient (Order) Timeframe: 2 Weeks Facility: [facility] - Location: Physical Therapy Ordered By: Dallas Saravia Referrals: Dallas Saravia MD [Physician] - 01/05/21 8:00 am Discharge Diet: Advance as tolerated Discharge Activity: Limit activity as instructed Patient Instructions: Opioid Safety Activity Restrictions/Additional Instructions: Okay to shower. No soaking incision in tub Apply FirstIce up to 20 min/hr for pain and swelling Take Celebrex twice a day for the next 15 days for pain , discontinue other anti-inflammatories Take Neurontin twice a day for 7 days. Take Tylenol 500mg (up to 2 tabs) 3 times a day for mild pain Take oxycodone for breakthrough pain. Exercises per physical therapy. May weight-bear as tolerated on total hip arthroplasty Discharge Attestations Time Spent in Discharge Care*: other Quality Metrics Clinical Quality Measures During this hospital stay, did patient experience: None Coding Level of Care Code Acute Chg FW DC note
--- NOTE | 2021-01-02 13:05 | PC.NURSE ---
discharge instructions given to patient and . both verbalized understanding of instructions. patient assisted with getting dressed.
--- NOTE | 2021-01-02 13:33 | PC.NURSE ---
patient requesting walker. mortgage underwriter notified HANSEL Toscano. Dorcas said she can fax order to and patient can pick it up. patient taken to private vehicle by staff and assisted into vehicle.
== END 2021-01-02 13:36 | disposition home or self-care (01) ==
LOC: MEDSURG 09:37
PROVIDERS: Anesthesiology; Admitting Provider Orthopaedic Surgery; PCP Nurse Practitioner Family; Visit Provider Orthopaedic Surgery
PROC: (CPT 27130; principal; 2021-01-01 07:00)
DX: M16.11 Unilateral primary osteoarthritis, right hip (principal); J44.9 Chronic obstructive pulmonary disease, unspecified; I10 Essential (primary) hypertension; K21.00 Gastro-esophageal reflux disease with esophagitis, without bleeding; E11.9 Type 2 diabetes mellitus without complications; E66.01 Morbid (severe) obesity due to excess calories; Z68.32 Body mass index [BMI] 32.0-32.9, adult; F17.210 Nicotine dependence, cigarettes, uncomplicated; Z86.73 Personal history of transient ischemic attack (TIA), and cerebral infarction without residual deficits
CPT/HCPCS: 27130; 36415; 72170; 80048; 81025; 84703; 85018; 97116; 97161; 97165; 97530; C1776; G0378; J0690; J1100; J1580; J1885; J2270; J2405; J2704; J2710; J3010; J3490; J7030; J8610

== ENCOUNTER 2021-01-09 06:00 | Outpatient (RCR) | payer MEDICARE, SELFPAY | END 2021-01-30 23:59 | disposition home or self-care (01) | LOC: TPT 06:00 | PROVIDERS: PCP Nurse Practitioner Family; Referring Provider Orthopaedic Surgery; Visit Provider Orthopaedic Surgery | DX: Z47.1 Aftercare following joint replacement surgery (principal); Z96.641 Presence of right artificial hip joint | CPT/HCPCS: 97110; 97162; 97530 ==

== ENCOUNTER 2021-01-31 06:00 | Outpatient (RCR) | payer MEDICARE, SELFPAY | END 2021-03-02 23:59 | disposition home or self-care (01) | LOC: TPT 06:00 | PROVIDERS: PCP Nurse Practitioner Family; Referring Provider Orthopaedic Surgery; Visit Provider Orthopaedic Surgery | DX: Z96.641 Presence of right artificial hip joint (principal) | CPT/HCPCS: 73502; 97110 ==

== ENCOUNTER 2021-03-03 06:00 | Outpatient (RCR) | payer MEDICARE, SELFPAY | END 2021-03-22 23:59 | disposition home or self-care (01) | LOC: TPT 06:00 | PROVIDERS: PCP Nurse Practitioner Family; Referring Provider Orthopaedic Surgery; Visit Provider Orthopaedic Surgery | DX: Z96.641 Presence of right artificial hip joint (principal) | CPT/HCPCS: 97110; 97164 ==

== ENCOUNTER 2021-04-30 12:52 | Outpatient (CLI) | payer MEDICARE, SELFPAY ==
[2021-04-30 13:50] LABS: Basophils # 0.1 10^3/uL (0.0-0.1); Basophils % 0.6 %; Eosinophils # 0.2 10^3/uL (0.0-0.8); Eosinophils % 2.2 %; Hematocrit 36.1 % (37.0-47.0); Hemoglobin 10.3 g/dL (11.5-15.3); Lymphocytes # 1.4 10^3/uL (0.8-4.8); Lymphocytes % 14.9 %; Mean Corpuscular HGB Conc 28.5 g/dL (30.0-36.0); Mean Corpuscular Hemoglobin 22.4 pg (28.0-34.0); Mean Corpuscular Volume 78.6 fl (81-99); Mean Platelet Volume 10.7 fL (7.4-10.4); Monocytes # 0.5 10^3/uL (0.2-0.9); Monocytes % 5.1 %; Neutrophils # 7.24 10^3/uL (1.8-7.7); Neutrophils % 76.8 %; Nucleated Red Blood Cells % 0 %; Platelet Count 398 10^3/cmm (130-400); Red Blood Count 4.59 10^6/uL (4.1-5.3); Red Cell Distribution Width 17.2 % (12.1-15.1); White Blood Count 9.4 10^3/uL (4.0-10.0)
[2021-04-30 14:19] LABS: Alanine Aminotransferase 9 U/L (0-33); Albumin Level 4.2 g/dL (3.5-5.2); Alkaline Phosphatase 109 IU/L (35-105); Anion Gap 15.6 (5-19); Aspartate Amino Transferase 19 U/L (0-32); Blood Urea Nitrogen 20 mg/dL (6-20); Calcium 9.1 mg/dL (8.5-10.5); Carbon Dioxide 26 mmol/L (22-29); Chloride 101 mmol/L (98-107); Glomerular Filtration Rate 86.2 mL/min (90-130); Glucose 213 mg/dL (65-115); Osmolality Calculated 295 mOsm/kg (285-295); Potassium 4.6 mmol/L (3.5-5.1); Sodium 138 mmol/L (136-145); Total Bilirubin 0.3 mg/dL (0.15-1.2); Total Protein 7.2 g/dL (6.6-8.7)
[2021-04-30 15:00] LABS: Hepatitis A Antibody IgM Non-Reactive (Nonreactive); Hepatitis B Core AB, Total Non-Reactive (Nonreactive); Hepatitis B Surface Antigen Non-Reactive (Nonreactive); Hepatitis C Virus Antibody Non-Reactive (Nonreactive)
[2021-04-30 15:02] LABS: Hepatitis B Surface AB < 3.5 (11.5-1000)
[2021-04-30 15:48] LABS: HIV 1 & 2 Antibody Non-Reactive (Non-Reactiv); HIV 1 & 2 Antigen Non-Reactive (Non-Reactiv)
[2021-05-02 14:18] LABS: Quantiferon Mitogen >10.00 IU/mL; Quantiferon Nil 0.01 IU/mL; Quantiferon Plus TB1 0.01 IU/mL; Quantiferon Plus TB2 0.02 IU/mL; Quantiferon TB Gold NEGATIVE (NEGATIVE)
== END 2021-04-30 12:53 | disposition home or self-care (01) ==
PROVIDERS: PCP Nurse Practitioner Family; Visit Provider Dermatology
DX: L40.0 Psoriasis vulgaris (principal); L40.50 Arthropathic psoriasis, unspecified; Z79.899 Other long term (current) drug therapy
CPT/HCPCS: 36415; 80053; 85025; 86480; 86705; 86706; 86709; 86803; 87340; 87806

== ENCOUNTER → 2021-06-04 10:21 | Outpatient (BNVA) | payer MEDICARE, SELFPAY | PROVIDERS: PCP Nurse Practitioner Family; Visit Provider Nurse Practitioner Family | DX: D64.9 Anemia, unspecified (principal); N93.9 Abnormal uterine and vaginal bleeding, unspecified; R19.4 Change in bowel habit | CPT/HCPCS: 80053; 82607; 82728; 82746; 83550; 85025 ==

== ENCOUNTER → 2021-06-05 17:01 | Outpatient (BNVA) | payer MEDICARE, SELFPAY | PROVIDERS: PCP Nurse Practitioner Family; Visit Provider Nurse Practitioner Family | DX: D64.9 Anemia, unspecified (principal); R19.4 Change in bowel habit | CPT/HCPCS: 82270 ==

== ENCOUNTER → 2021-10-29 16:50 | Outpatient (BNVA) | payer MEDICARE, SELFPAY | PROVIDERS: PCP Nurse Practitioner Family; Visit Provider Nurse Practitioner Family | DX: R05.9 Cough, unspecified (principal); J40 Bronchitis, not specified as acute or chronic; Z12.31 Encounter for screening mammogram for malignant neoplasm of breast; I10 Essential (primary) hypertension; Z12.11 Encounter for screening for malignant neoplasm of colon; E11.9 Type 2 diabetes mellitus without complications; R09.89 Other specified symptoms and signs involving the circulatory and respiratory systems; J01.40 Acute pansinusitis, unspecified | CPT/HCPCS: 80053; 83036 ==

== ENCOUNTER → 2021-11-08 14:49 | Outpatient (BNVA) | payer MEDICARE, SELFPAY | PROVIDERS: PCP Nurse Practitioner Family; Visit Provider Nurse Practitioner Family | DX: R30.9 Painful micturition, unspecified (principal); I10 Essential (primary) hypertension; J40 Bronchitis, not specified as acute or chronic; E11.65 Type 2 diabetes mellitus with hyperglycemia; F17.200 Nicotine dependence, unspecified, uncomplicated | CPT/HCPCS: 81000; 81003 ==

== ENCOUNTER → 2022-02-06 13:40 | Outpatient (BNVA) | payer MEDICARE, SELFPAY | PROVIDERS: PCP Nurse Practitioner Family; Visit Provider Nurse Practitioner Family | DX: R30.9 Painful micturition, unspecified (principal); I10 Essential (primary) hypertension; J40 Bronchitis, not specified as acute or chronic; Z78.0 Asymptomatic menopausal state; E11.65 Type 2 diabetes mellitus with hyperglycemia; L40.9 Psoriasis, unspecified; Z12.31 Encounter for screening mammogram for malignant neoplasm of breast; F17.200 Nicotine dependence, unspecified, uncomplicated; Z00.00 Encounter for general adult medical examination without abnormal findings; N93.9 Abnormal uterine and vaginal bleeding, unspecified; M79.671 Pain in right foot; M79.672 Pain in left foot; G89.29 Other chronic pain; B35.3 Tinea pedis; F41.9 Anxiety disorder, unspecified | CPT/HCPCS: 80053; 80061; 82043; 83036; 84443; 85025 ==

== ENCOUNTER 2022-02-27 01:00 | Outpatient (CLI) | payer MEDICARE, SELFPAY | END 2022-02-27 23:00 | disposition home or self-care (01) | LOC: RAD 03-04 14:43 | PROVIDERS: PCP Nurse Practitioner Family; Visit Provider Nurse Practitioner Family | DX: E11.65 Type 2 diabetes mellitus with hyperglycemia (principal); L40.0 Psoriasis vulgaris; B35.1 Tinea unguium; Z79.84 Long term (current) use of oral hypoglycemic drugs | CPT/HCPCS: 11055; 11721; 99203 ==

== ENCOUNTER 2022-05-09 13:30 | Outpatient (CLI) | payer MEDICARE, SELFPAY ==
--- NOTE | 2022-05-09 13:35 | XR_ITS ---
WS: [id number] SCREENING DEXA SCAN [employer] CLINICAL INFORMATION: Z78.0 - Asymptomatic menopausal state COMPARISON: None. FINDINGS: The L1-L4 bone mineral density measures 1.350 g/cm2. This corresponds to a T score score of 1.4 and Z score of 2.0. Left femoral neck bone mineral density measures 0.931 (g/cm2). This corresponds to a T score of -0.6 (no units) and Z score of -0.1 (no units). XR/XR DEXA axial skeleton* 53766 IMPRESSION: Normal bone mineralization lumbar spine. Normal bone mineralization LEFT femora l neck Patient's FRAX calculated 10 year probability for major osteoporotic fracture i s 6.7 % and osteoporotic hip fracture is 0.7%.
--- NOTE | 2022-05-09 13:39 | MM_ITS ---
WS: [id number] Bilateral screening 3D tomosynthesis digital mammogram, 05/09/2022 Clinical Data: SCREENING Comparison: 06/17/2017 Findings: The breast parenchymal pattern shows fibroglandular tissue. No spiculated masses or clustered calcifi cations are seen. There are no secondary signs of carcinoma. MM/[place] [id number] Impression: 1. Negative bilateral mammogram unchanged. 2. Recommend annual screening mammograms. BIRADS: 1-Negative FOLLOW UP: 1 Year Follow-up The CAD credit rating checker was used.
== END 2022-05-09 13:31 | disposition home or self-care (01) ==
PROVIDERS: PCP Nurse Practitioner Family; Visit Provider Nurse Practitioner Family
DX: Z12.31 Encounter for screening mammogram for malignant neoplasm of breast (principal); Z78.0 Asymptomatic menopausal state
CPT/HCPCS: 77063; 77067; 77080

== ENCOUNTER → 2022-08-28 14:30 | Outpatient (BNVA) | payer MEDICARE, SELFPAY | PROVIDERS: PCP Nurse Practitioner Family; Visit Provider Nurse Practitioner Family | DX: R10.9 Unspecified abdominal pain (principal) | CPT/HCPCS: 74018; 81000 ==

== ENCOUNTER → 2022-09-17 14:01 | Outpatient (BNVA) | payer OTHER, SELFPAY | PROVIDERS: PCP Nurse Practitioner Family; Visit Provider Nurse Practitioner Family | DX: T14.8XXA Other injury of unspecified body region, initial encounter (principal); M54.2 Cervicalgia; M94.0 Chondrocostal junction syndrome [Tietze]; E11.9 Type 2 diabetes mellitus without complications; I10 Essential (primary) hypertension; F17.200 Nicotine dependence, unspecified, uncomplicated; Y99.9 Unspecified external cause status | CPT/HCPCS: 80053; 80061; 83036 ==

== ENCOUNTER → 2022-10-07 09:56 | Outpatient (BNVA) | payer MEDICARE, SELFPAY | PROVIDERS: PCP Nurse Practitioner Family; Visit Provider Podiatrist Foot & Ankle Surgery | DX: B35.1 Tinea unguium (principal); L40.0 Psoriasis vulgaris; E11.65 Type 2 diabetes mellitus with hyperglycemia; I73.9 Peripheral vascular disease, unspecified; Z79.84 Long term (current) use of oral hypoglycemic drugs | CPT/HCPCS: 11721 ==

== ENCOUNTER → 2022-11-25 17:01 | Outpatient (BNVA) | payer MEDICARE, SELFPAY | PROVIDERS: PCP Nurse Practitioner Family; Visit Provider Nurse Practitioner Family | DX: L30.4 Erythema intertrigo (principal); F41.9 Anxiety disorder, unspecified; B37.9 Candidiasis, unspecified | CPT/HCPCS: 81003; 87086 ==

== ENCOUNTER → 2022-11-27 14:43 | Outpatient (BNVA) | payer MEDICARE, SELFPAY | PROVIDERS: PCP Nurse Practitioner Family; Visit Provider Dermatology | DX: L40.0 Psoriasis vulgaris (principal); L21.8 Other seborrheic dermatitis; D22.5 Melanocytic nevi of trunk | CPT/HCPCS: 99214 ==

== ENCOUNTER 2023-01-06 11:04 | Outpatient (CLI) | payer MEDICARE, SELFPAY ==
[2023-01-08 18:00] LABS: Quantiferon Mitogen >10.00 IU/mL; Quantiferon Nil 0.05 IU/mL; Quantiferon Plus TB1 <0.00 IU/mL; Quantiferon Plus TB2 <0.00 IU/mL; Quantiferon TB Gold NEGATIVE (NEGATIVE)
== END 2023-01-06 11:05 | disposition home or self-care (01) ==
PROVIDERS: PCP Nurse Practitioner Family; Visit Provider Dermatology
DX: L40.0 Psoriasis vulgaris (principal)
CPT/HCPCS: 36415; 86480

== ENCOUNTER → 2023-02-26 14:48 | Outpatient (BNVA) | payer MEDICARE, SELFPAY | PROVIDERS: PCP Nurse Practitioner Family; Visit Provider Nurse Practitioner Family | DX: M25.552 Pain in left hip (principal); D25.9 Leiomyoma of uterus, unspecified; M25.562 Pain in left knee; M17.12 Unilateral primary osteoarthritis, left knee; M16.12 Unilateral primary osteoarthritis, left hip | CPT/HCPCS: 73502; 73562 ==

== ENCOUNTER → 2023-05-06 15:00 | Outpatient (BNVA) | payer MEDICARE, SELFPAY | PROVIDERS: PCP Nurse Practitioner Family; Referring Provider Nurse Practitioner Family; Visit Provider Obstetrics & Gynecology | DX: Z01.419 Encounter for gynecological examination (general) (routine) without abnormal findings (principal); N95.0 Postmenopausal bleeding; E11.65 Type 2 diabetes mellitus with hyperglycemia | CPT/HCPCS: 80053; 84443; 85025; 87624 ==

== ENCOUNTER → 2023-05-21 11:31 | Outpatient (BNVA) | payer MEDICARE, SELFPAY | PROVIDERS: PCP Nurse Practitioner Family; Visit Provider Nurse Practitioner Family | DX: E11.65 Type 2 diabetes mellitus with hyperglycemia (principal) | CPT/HCPCS: 80053; 80061; 83036 ==

== ENCOUNTER → 2023-06-10 12:12 | Outpatient (BNVA) | payer MEDICARE, SELFPAY | PROVIDERS: PCP Nurse Practitioner Family; Visit Provider Obstetrics & Gynecology | DX: D25.9 Leiomyoma of uterus, unspecified (principal) | CPT/HCPCS: 76856 ==

== ENCOUNTER 2023-06-17 13:21 | Outpatient (CLI) | payer MEDICARE, SELFPAY ==
--- NOTE | 2023-06-17 13:30 | MM_ITS ---
WS: [id number] BILATERAL 3D TOMOSYNTHESIS DIGITAL SCREENING MAMMOGRAPHY WITH CAD CLINICAL INFORMATION: SCREENING HISTORY: Screening mammogram. No current complaints. COMPARISON: 05/09/2022 TECHNIQUE: Bilateral CC and MLO views. FINDINGS: Scattered fibroglandular densities bilaterally. No suspicious focal mass, asymmetry, calcifications, or architectural distortion. No evidence of malignancy. Few tiny incidental punctate calcifications. IMPRESSION: MM/[place] [id number] BI-RADS: 2-Benign FOLLOW UP: 1 Year Follow-up Recommend return to annual screening mammography.
== END 2023-06-17 13:22 | disposition home or self-care (01) ==
LOC: MOBLMAM 13:27
PROVIDERS: PCP Nurse Practitioner Family; Visit Provider Nurse Practitioner Family
DX: Z12.31 Encounter for screening mammogram for malignant neoplasm of breast (principal)
CPT/HCPCS: 77063; 77067

== ENCOUNTER → 2023-06-26 09:57 | Day surgery (SDC) | payer MEDICARE, SELFPAY ==
--- NOTE | 2023-06-25 23:03 | W.PM.OPSFHP ---
Same Day Surgery H&P Indication for Procedure/HPI DATE OF PROCEDURE: June 25, 2023 CHIEF COMPLAINT/INDICATIONFOR SURGICAL PROCEDURE: abnormal uterine bleeding PREOP DIAGNOSIS: abnormal uterine bleeding PLANNED PROCEDURE: Operation Date: 06/26/23 11:30 Proposed Procedures p Hysteroscopy, endometrial sampling, possible endometrial polypectomy 17299, N95.0(Not Applicable) - Akil Wright MD s Poss Poylpectomy(Not Applicable) - Akil Wright MD 58 y.o. had vasectomy Bleeding intermittent x 20 years Ranging from once in two to several months Heavy when they occur Medications/Allergies* Home Medications Medication Instructions Recorded Confirmed Type multivitamin 1 tab PO DAILY 04/28/20 06/25/23 History clotrimazole-betamethasone 1 1 applic topical BID PRN psorasis 06/25/23 06/25/23 History %-0.05 % topical cream empagliflozin 25 mg tablet 25 mg PO DAILY 06/25/23 06/25/23 History (Jardiance) fluconazole 100 mg tablet 100 mg PO DAILY PRN yeast infection 06/25/23 06/25/23 History (Diflucan) hydrochlorothiazide 25 mg tablet 25 mg PO DAILY 06/25/23 06/25/23 History ketoconazole 2 % shampoo 1 applic topical .2 x weekly PRN 06/25/23 06/25/23 History Rash ketoconazole 2 % topical cream 1 applic topical BID PRN Rash 06/25/23 06/25/23 History metformin 500 mg tablet 500 mg PO BID 06/25/23 06/25/23 History metoprolol tartrate 25 mg tablet 50 mg PO BID 06/25/23 06/25/23 History nystatin 100,000 unit/gram topical 1 applic topical BID PRN yeast 06/25/23 06/25/23 History cream infection pantoprazole 40 mg tablet,delayed 40 mg PO DAILY 06/25/23 06/25/23 History release risankizumab-rzaa 150 mg/mL 150 mg SUBCUT DIRECTED 06/25/23 06/25/23 History subcutaneous syringe (Skyrizi) Allergies/Adverse Reactions Allergy/AdvReac Type Severity Reaction Status Date / Time doxycycline Allergy rash Verified 06/25/23 11:48 Penicillins Allergy ADR-Itching Verified 06/25/23 11:48 Pertinent History/Comorbid Conditions* Medical History (Updated 05/21/23 @ 11:25 by FOREIGN Yancey) Peripheral arterial disease Anxiety High risk medication use Psoriatic arthritis Plaque psoriasis Hypertension Diabetes mellitus Right renal stone CVA (cerebral vascular accident) Uterine fibroid Urinary retention Surgical History (Updated 01/02/21 @ 10:33 by Dallas Saravia MD) Hx of colonoscopy (~1994) H/O section Family History (Updated 05/06/23 @ 14:39 by Haydee Beckman LPN) Diabetes Mother Heart disease Mother Hypertension Mother Stroke Father Denies family history of Colon cancer Ovarian cancer Hypercholesteremia Breast cancer Uterine cancer Thyroid disease Social History Smoking and tobacco/nicotine status: current every day tobacco/nicotine user (1PPD) Alcohol intake: never Substance/Drug Use: never Marital status: Pertinent Exam Findings alert, oriented x 3, clear to auscultation bilaterally and regular rate & rhythm Pertinent Data Pap 3--24 NILM, negative HPV Pelvic sono 06-10-23 uterus 11.8 x 7.7 x 8.1 cm Uterine fundus mass 8 x 7 x 6 cm, c/w fibroid Endometrium not visualized Ovaries not visualized Recommendations Surgery/Procedure today Coding Level of Care Code Acute Code for Chg Fwd Time Spent (min) 20
[2023-06-26] VITALS (9 sets, daily range): BP systolic 132–176; BP diastolic 74–95; PULSE 68–80; RESP 18; TEMP 36.2–36.7; O2SAT 91–98; BMI 30.6
--- NOTE | 2023-06-26 10:49 | ANES.PREANE2 ---
Pre-Anesthetic Assessment Height/Weight: Height 1.63 m Weight 80.957 kg Temp Pulse Resp BP Pulse Ox O2 Del Method 97.8 F 68 18 173/95 96 Room Air 06/26/23 10:41 06/26/23 10:41 06/26/23 10:41 06/26/23 10:41 06/26/23 10:41 06/26/23 10:41 Preop Diagnosis: abnormal uterine bleeding Operation Date: 06/26/23 11:30 Proposed Procedures p Hysteroscopy, endometrial sampling, possible endometrial polypectomy 57961, N95.0(Not Applicable) - Akil Wright MD s Poss Poylpectomy(Not Applicable) - Akil Wright MD Familial anesthetic complications: None Was Beta Wyatt taken within 24 hours: Yes Was Clonidine taken within 24 hours: N/A Last intake: Intake Last Liquid Date 06/25/23 Last Liquid Time 21:00 Last Solid Date 06/25/23 Last Solid Time 21:00 Social Tobacco and No alcohol Exam alert, oriented x 3, clear to auscultation bilaterally and regular rate & rhythm Airway Mallampati: Class II Dentition: other (no teeth) Pulmonary Chronic Obstructive Pulmonary Disease CV/HEM Coronary Artery Disease and Hypertension Metabolic Diabetes Mellitus Anesthetic Plan ASA status: 3 Anesthesia: General Risk of > 500 ml blood loss (7ml/kg in children): No Medications/Allergies Home Medications Medication Instructions Recorded Confirmed Last Taken Type multivitamin 1 tab PO DAILY 04/28/20 06/25/23 06/25/23 History acetaminophen 325 mg tablet 325 mg PO QID PRN pain #30 tabs 01/23/21 06/25/23 Unknown Rx (Tylenol) budesonide-formoterol HFA 160 2 puff inhalation Q12H 30 days 10/29/21 06/25/23 Unknown Rx mcg-4.5 mcg/actuation aerosol #10.2 grams inhaler (Symbicort) blood-glucose meter #1 ea 11/27/21 05/21/23 Unknown Rx Diabetic shoes and 3 inserts #1 ea 02/27/22 05/21/23 Unknown Rx Diabetic shoes with inserts #1 ea 05/21/22 05/21/23 Unknown Rx tamsulosin 0.4 mg capsule 0.4 mg PO QDAY #30 caps 08/28/22 06/25/23 06/25/23 Rx cyclobenzaprine 10 mg tablet 10 mg PO TID PRN muscle spasm #90 09/17/22 06/25/23 Unknown Rx tabs ketorolac 10 mg tablet 10 mg PO QID PRN pain 5 days #20 09/17/22 06/25/23 Unknown Rx tabs escitalopram oxalate 20 mg tablet 20 mg PO DAILY #90 tabs 11/25/22 06/25/23 06/25/23 Rx albuterol sulfate 90 mcg/actuation 2 puff inhalation 6XD PRN 12/18/22 06/25/23 Unknown Rx aerosol inhaler (ProAir HFA) shortness of breath or wheezing #8.5 grams buspirone 10 mg tablet 10 mg PO BID 30 days #60 tabs 02/26/23 06/25/23 06/25/23 Rx trazodone 50 mg tablet 50 mg PO .qhs #30 tabs 02/26/23 06/25/23 06/24/23 Rx blood sugar diagnostic (Blood #200 ea 05/21/23 05/21/23 Unknown Rx Glucose Test strips) blood-glucose meter #1 ea 05/21/23 05/21/23 Unknown Rx lancets #200 ea 05/21/23 05/21/23 Unknown Rx semaglutide 0.25 mg or 0.5 mg (2 See Rx Instructions SUBCUT .weekly 06/05/23 06/25/23 Unknown Rx mg/3 mL) subcutaneous pen injector #3 mL (Melodigram) clotrimazole-betamethasone 1 1 applic topical BID PRN psorasis 06/25/23 06/25/23 Unknown History %-0.05 % topical cream empagliflozin 25 mg tablet 25 mg PO DAILY 06/25/23 06/25/23 06/25/23 History (Jardiance) fluconazole 100 mg tablet 100 mg PO DAILY PRN yeast infection 06/25/23 06/25/23 Unknown History (Diflucan) hydrochlorothiazide 25 mg tablet 25 mg PO DAILY 06/25/23 06/25/23 06/25/23 History ketoconazole 2 % shampoo 1 applic topical .2 x weekly PRN 06/25/23 06/25/23 Unknown History Rash ketoconazole 2 % topical cream 1 applic topical BID PRN Rash 06/25/23 06/25/23 Unknown History metformin 500 mg tablet 500 mg PO BID 06/25/23 06/25/23 06/25/23 History metoprolol tartrate 25 mg tablet 50 mg PO BID 06/25/23 06/25/23 06/26/23 History nystatin 100,000 unit/gram topical 1 applic topical BID PRN yeast 06/25/23 06/25/23 Unknown History cream infection pantoprazole 40 mg tablet,delayed 40 mg PO DAILY 06/25/23 06/25/23 06/25/23 History release risankizumab-rzaa 150 mg/mL 150 mg SUBCUT DIRECTED 06/25/23 06/25/23 06/20/23 History subcutaneous syringe (Skyrizi) Allergies Allergy/AdvReac Type Severity Reaction Status Date / Time doxycycline Allergy rash Verified 06/25/23 11:48 Penicillins Allergy ADR-Itching Verified 06/25/23 11:48 PFS Anesthesia Medical History Peripheral arterial disease Anxiety High risk medication use Psoriatic arthritis Plaque psoriasis Hypertension Diabetes mellitus Right renal stone CVA (cerebral vascular accident) Uterine fibroid Urinary retention Surgical History Hx of colonoscopy (~1994) H/O section Family History Mother Diabetes Heart disease Hypertension Father Stroke Denies family history of Colon cancer Ovarian cancer Hypercholesteremia Breast cancer Uterine cancer Thyroid disease Social History Smoking and tobacco/nicotine status: current every day tobacco/nicotine user (1PPD) Alcohol intake: never Substance/Drug Use: never Marital status: Data Anesthesia Cardiac Studies: No Data to Display
--- NOTE | 2023-06-26 10:57 | W.PM.OPSUD ---
Surgery/Procedure H&P Update DATE OF PROCEDURE: June 26, 2023 DATE H&P PERFORMED: 06/26/23 H&P UPDATE INFORMATION: I have reviewed H&P completed within last 30 days, I have examined patient prior to procedure and No changes to prior documentation PREOP DIAGNOSIS: abnormal uterine bleeding PLANNED PROCEDURE: Operation Date: 06/26/23 11:30 Proposed Procedures p Hysteroscopy, endometrial sampling, possible endometrial polypectomy 27941, N95.0(Not Applicable) - Akil Wright MD s Poss Poylpectomy(Not Applicable) - Akil Wright MD
[2023-06-26 11:08] LABS: Glucose Point of Care 147 mg/dL (70-110)
[2023-06-26] MEDS: sodium chloride 0.9% 1,000 ML 30 ML IV (11:08)
--- NOTE | 2023-06-26 12:15 | PM.OP ---
Operative Report Date of procedure: June 26, 2023 Pre-op diagnosis: abnormal uterine bleeding Post-op diagnosis: same Post-op findings: Narrow vaginal canal Cervix high up in vagina Stenotic cervical os Uterus sounded to 6 cm Small amount of endometrial tissue Procedure done: Curettage of uterus Implants: none Specimens removed/disposition: endometrial curettings Surgeon: Akil Wright MD Anesthesia: General Estimated blood loss (mL): 0 Complications: none Condition: stable Disposition: PACU Brief History: 58 y.o. Bleeding intermittent x 20 years Ranging from once in two to several months Heavy when they occur Procedure: Informed consent signed. Patient was taken to the operating room. Anesthesia was induced. Patient was placed in dorsolithotomy position, prepped and draped for hysteroscopy. A bivalve speculum was placed in the vagina. The vaginal canal was noted to be narrowed. The cervix was located high up in the vaginal canal. The anterior lip of the cervix was grasped with a sharp-toothed tenaculum. The cervix was serially dilated with Hegar dilators. . A hysteroscope could not be introduced due to the above findings, making it a technically difficult procedure. Endometrial curettage was done with a small curette. Small amount of endometrial tissue was obtained. Endometrial curettings was sent to pathology. The sharp-toothed tenaculum was removed. There was no bleeding from the endometrial cavity or cervix. The patient was then placed supine and awakened and taken to the PACU. Postop condition: stable EBL: none Sponge and instruments counts were normal x 2 Complications: none
--- NOTE | 2023-06-26 13:20 | ANE.PACU2 ---
Inpatient post-anesthesia follow up: Airway intact: Yes Vital signs: Temperature 98.1 F Pulse Rate 71 Respiratory Rate 18 Blood Pressure 153/83 Pulse Oximetry 92 Oxygen Delivery Me thod Room Air Oxygen Flow Rate 6 Fraction of Inspir ed Oxygen Hydration adequate: Yes Nausea and vomiting: No Pain level: 1 Mental status: Baseline
== END | disposition home or self-care (01) ==
PROVIDERS: PCP Nurse Practitioner Family; Visit Provider Obstetrics & Gynecology
PROC: (CPT 58120; principal; 2023-06-26 11:20)
DX: N93.9 Abnormal uterine and vaginal bleeding, unspecified (principal); N89.5 Stricture and atresia of vagina; J44.9 Chronic obstructive pulmonary disease, unspecified; I25.10 Atherosclerotic heart disease of native coronary artery without angina pectoris; I10 Essential (primary) hypertension; E11.9 Type 2 diabetes mellitus without complications; F41.9 Anxiety disorder, unspecified; F17.200 Nicotine dependence, unspecified, uncomplicated
CPT/HCPCS: 58120; 36416; 82962; 88305; J1100; J2405; J2704; J3010; J7030; J9999

== ENCOUNTER → 2023-08-04 15:00 | Outpatient (BNVA) | payer MEDICARE, SELFPAY | PROVIDERS: PCP Nurse Practitioner Family; Visit Provider Nurse Practitioner Family | DX: E11.65 Type 2 diabetes mellitus with hyperglycemia (principal) | CPT/HCPCS: 80053; 82607; 83735; 84443; 85025 ==

== ENCOUNTER → 2023-08-28 14:45 | Outpatient (BNVA) | payer MEDICARE, SELFPAY | PROVIDERS: PCP Nurse Practitioner Family; Visit Provider Nurse Practitioner Family | DX: L40.0 Psoriasis vulgaris (principal); L21.8 Other seborrheic dermatitis; D22.5 Melanocytic nevi of trunk; F17.200 Nicotine dependence, unspecified, uncomplicated; L30.4 Erythema intertrigo | CPT/HCPCS: 99214 ==

== ENCOUNTER → 2023-12-08 11:01 | Outpatient (BNVA) | payer MEDICARE, SELFPAY | PROVIDERS: PCP Nurse Practitioner Family; Visit Provider Obstetrics & Gynecology | DX: N95.0 Postmenopausal bleeding (principal); D25.9 Leiomyoma of uterus, unspecified | CPT/HCPCS: 76830 ==

== ENCOUNTER 2023-12-31 15:52 | Outpatient (CLI) | payer MEDICARE, SELFPAY | END 2023-12-31 15:53 | disposition home or self-care (01) | LOC: LAB 15:53 | PROVIDERS: PCP Nurse Practitioner Family; Visit Provider Nurse Practitioner Family | DX: L40.0 Psoriasis vulgaris (principal); Z79.899 Other long term (current) drug therapy; L21.8 Other seborrheic dermatitis; D22.5 Melanocytic nevi of trunk; F17.200 Nicotine dependence, unspecified, uncomplicated; L30.4 Erythema intertrigo | CPT/HCPCS: 86480 ==

== ENCOUNTER 2024-01-07 14:20 | Emergency (ER) | payer MEDICARE, SELFPAY ==
--- NOTE | 2024-01-07 14:22 | XR_ITS ---
WS: [id number] XR KUB portable [id number] REASON FOR EXAM: abd pain FINDINGS: No free air or retroperitoneal air. Large volume of retained stool throughout the colon including the rectum. No significant small bowel distention. No definite urinary tract calculi. (CT scan from 10/30/2020 demonstrated several tiny left intrarenal calculi.) Vague increased density in the pelvis likely correlates with large fibroid uterus seen on the previou s CT scan 10/30/2020. XR/XR KUB portable [id number] IMPRESSION: No acute abnormality identified. Chronic abnormalities as above.
[2024-01-07 14:26] VITALS: BP 169/92; PULSE 94; RESP 18; TEMP 36.3; O2SAT 94; BMI 29.4
[2024-01-07 15:02] LABS: Basophils # 0.1 10^3/uL (0.0-0.1); Basophils % 0.4 %; Eosinophils # 0.1 10^3/uL (0.0-0.8); Eosinophils % 0.4 %; Hematocrit 46.9 % (36-47); Lymphocytes # 1.5 10^3/uL (0.8-4.8); Lymphocytes % 12.8 %; Mean Corpuscular Volume 84.8 fl (85-98); Mean Platelet Volume 10.1 fL (7.4-10.4); Monocytes # 0.5 10^3/uL (0.2-0.9); Monocytes % 4.5 %; Neutrophils % 81.5 %; Nucleated Red Blood Cells % 0 %; Platelet Count 329 10^3/cmm (157-399); Red Blood Count 5.53 10^6/uL (3.85-5.65); Red Cell Distribution Width 13.5 % (12.1-15.1)
--- NOTE | 2024-01-07 15:13 | W.ED.ABDPA2 ---
HPI - Abdominal Pain General: Chief Complaint: Abdominal Pain Stated Complaint: unable to BM Time Seen by Provider: 01/07/24 15:02 History of Present Illness: 58-year-old female who presents to the emergency room from her primary care physician's office with constipation. She says she does not normally have issues with constipation. She says she is not taking any pain medications regularly. She took enemas and [id number] laxatives and has had no results. Today she is having abdominal pain that is very diffuse and radiates to her back. She has had some dry heaves. Only surgical history is of a section. No fevers. No chest pain. No shortness of breath. No altered mental status. No focal motor deficits. Related Data Home Medications Medication Instructions Recorded Confirmed multivitamin 1 tab PO DAILY 04/28/20 01/07/24 clotrimazole-betamethasone 1 1 applic topical BID PRN psorasis 06/25/23 01/07/24 %-0.05 % topical cream ketoconazole 2 % shampoo 1 applic topical .2 x weekly PRN 06/25/23 01/07/24 Rash ketoconazole 2 % topical cream 1 applic topical BID PRN Rash 06/25/23 01/07/24 metformin 500 mg tablet 500 mg PO BID 06/25/23 01/07/24 risankizumab-rzaa 150 mg/mL 150 mg SUBCUT DIRECTED 06/25/23 01/07/24 subcutaneous syringe (Isabelyrizi) albuterol sulfate 90 mcg/actuation 2 puff inhalation Q4H PRN 01/07/24 01/07/24 aerosol inhaler Shortness Of Breath Or Wheezing empagliflozin 25 mg tablet 25 mg PO QAM 01/07/24 01/07/24 (Jardiance) hydrochlorothiazide 25 mg tablet 25 mg PO DAILY 01/07/24 01/07/24 metoprolol tartrate 25 mg tablet 50 mg PO BID 01/07/24 01/07/24 pantoprazole 40 mg tablet,delayed 40 mg PO DAILY 01/07/24 01/07/24 release Previous Rx's Medication Instructions Recorded acetaminophen 325 mg tablet 325 mg PO QID PRN pain #30 tabs 01/23/21 (Tylenol) blood-glucose meter #1 ea 11/27/21 Diabetic shoes and 3 inserts #1 ea 02/27/22 Diabetic shoes with inserts #1 ea 05/21/22 blood sugar diagnostic (Blood #200 ea 05/21/23 Glucose Test strips) blood-glucose meter #1 ea 05/21/23 lancets #200 ea 05/21/23 semaglutide 0.25 mg or 0.5 mg (2 See Rx Instructions SUBCUT .weekly 06/05/23 mg/3 mL) subcutaneous pen injector #3 mL (Ozempic) polymyxin B sulfate 10,000 1 drp ophthalmic (eye) QID 7 days 08/20/23 unit-trimethoprim 1 mg/mL eye drops #10 mL solifenacin 10 mg tablet (Vesicare) 10 mg PO DAILY #30 tabs 11/19/23 glycerin (adult) 1 supp DC DAILY PRN constipation 01/07/24 #12 ea polyethylene glycol 3350 17 17 g PO DAILY #510 grams 01/07/24 gram/dose oral powder (Miralax) Allergies Allergy/AdvReac Type Severity Reaction Status Date / Time doxycycline Allergy rash Verified 01/07/24 13:17 Penicillins Allergy ADR-Itching Verified 01/07/24 13:17 Review of Systems Narrative: Constitutional symptoms: Negative except as documented in HPI. Skin symptoms: Negative except as documented in HPI. Eye symptoms: Negative except as documented in HPI. ENMT symptoms: Negative except as documented in HPI. Respiratory symptoms: Negative except as documented in HPI. Cardiovascular symptoms: Negative except as documented in HPI. Gastrointestinal symptoms: Negative except as documented in HPI. Genitourinary symptoms: Negative except as documented in HPI. Musculoskeletal symptoms: Negative except as documented in HPI. Neurologic symptoms: Negative except as documented in HPI. Psychiatric symptoms: Negative except as documented in HPI. Endocrine symptoms: Negative except as documented in HPI. PFSH ED PFSH: Medical History Enrolled in chronic care management Peripheral arterial disease Anxiety High risk medication use Psoriatic arthritis Plaque psoriasis Hypertension Diabetes mellitus Right renal stone CVA (cerebral vascular accident) Uterine fibroid Urinary retention Surgical History Hx of colonoscopy (~1994) H/O section Family History Mother Diabetes Heart disease Hypertension Father Stroke Denies family history of Colon cancer Ovarian cancer Hypercholesteremia Breast cancer Uterine cancer Thyroid disease Social History Smoking and tobacco/nicotine status: current every day tobacco/nicotine user Alcohol intake: never Substance/Drug Use: never Marital status: Physical Exam Narrative: EXAM NARRATIVE: General: Alert, no acute distress. Skin: Warm, dry. Head: Normocephalic, atraumatic. Neck: Supple, trachea midline. Eye: Extraocular movements are intact. Ears, nose, mouth and throat: mucosa moist. Cardiovascular: Regular, Normal peripheral perfusion. Respiratory: Lungs are clear to auscultation, respirations are non-labored, breath sounds are equal, Symmetrical chest wall expansion. Gastrointestinal: Soft, diffuse nonfocal abdominal tenderness, mild distention, Musculoskeletal: Normal ROM, no deformity. Neurological: Alert and oriented, No focal neurological deficit observed. Psychiatric: Cooperative, appropriate mood & affect. Course Vital Signs: Vital signs: Vital Signs Temperature 97.4 F L 01/07/24 14:26 Pulse Rate 74 01/07/24 19:18 Respiratory Rate 16 01/07/24 18:58 Blood Pressure 169/92 01/07/24 14:26 Pulse Oximetry 98 01/07/24 19:18 Oxygen Delivery Me thod Room Air 01/07/24 19:18 MDM - Abdominal Pain Medical Decision Making Medical decision making: Differential diagnosis including but not limited to and based on the above HPI, review of systems and physical exam: Constipation versus bowel obstruction versus other issues. Also would have concern for urinary tract infection. Orders placed to evaluate differential diagnosis based on the above differential, HPI and physical exam Abdomen x-ray: Nonspecific bowel gas pattern. No evidence of free air or obstruction. This was reviewed and interpreted by myself the emergency room physician. Lab Review: Laboratory results were reviewed and interpreted by myself the emergency room physician. No leukocytosis. No anemia. No renal failure. No urinary tract infection. CT of the abdomen pelvis: Patient has a fatty liver. Gallstones but no cholecystitis. Uterine fibroid. No signs of obstruction. No diverticulitis. I reviewed the patient's medical record. Reexamination: Patient remained stable. No increased work of breathing. No altered mental status. No focal motor deficits. Assessment and plan: Constipation ?GoLytely and enema. - Discharged home - Discussed findings and plan with patient. Answered any questions. - All laboratory values were reviewed and interpreted personally by myself, the ER physician - All imaging was reviewed and interpreted personally by myself, the ER physician. - Evaluation and treatment of this problem were appropriate in the emergency setting Lab Data 01/07/24 14:53 01/07/24 14:53 Labs/Radiology: Radiology Impressions KUB X-Ray 01/07/24 14:22 IMPRESSION: No acute abnormality identified. Chronic abnormalities as above. Abdomen/Pelvis CT 01/07/24 15:23 IMPRESSION: 1. Markedly severe fatty infiltration of the liver measuring 17 Hounsfield units. The patient may be at risk for cirrhosis. Possible excess oral intake of ethanol and/or fructose. 2. Multiple gallstones within the gallbladder. 3. 8.0 cm low-density left uterine lesion most consistent with large uterine fibroid. Laboratory Results WBC 11.30 10^3/uL (3.29-11.43) 01/07/24 14:53 RBC 5.53 10^6/uL (3.85-5.65) 01/07/24 14:53 Hgb 15.50 g/dL (11.27-16.99) 01/07/24 14:53 Hct 46.9 % (36-47) 01/07/24 14:53 MCV 84.8 fl (85-98) L 01/07/24 14:53 MCH 28.0 pg (27-33) 01/07/24 14:53 MCHC 33.0 g/dL (30-55) 01/07/24 14:53 RDW 13.5 % (12.1-15.1) 01/07/24 14:53 Plt Count 329 10^3/cmm (157-399) 01/07/24 14:53 MPV 10.1 fL (7.4-10.4) 01/07/24 14:53 Neut % (Auto) 81.5 % 01/07/24 14:53 Lymph % (Auto) 12.8 % 01/07/24 14:53 Glascock % (Auto) 4.5 % 01/07/24 14:53 Eos % (Auto) 0.4 % 01/07/24 14:53 Baso % (Auto) 0.4 % 01/07/24 14:53 Neut # (Auto) 9.20 10^3/uL (1.8-7.7) H 01/07/24 14:53 Lymph # (Auto) 1.5 10^3/uL (0.8-4.8) 01/07/24 14:53 Glascock # (Auto) 0.5 10^3/uL (0.2-0.9) 01/07/24 14:53 Eos # (Auto) 0.1 10^3/uL (0.0-0.8) 01/07/24 14:53 Baso # (Auto) 0.1 10^3/uL (0.0-0.1) 01/07/24 14:53 Nucleated RBC % (auto) 0 % 01/07/24 14:53 Nucleated RBCs # 0.0 /100WBC 01/07/24 14:53 Sodium 135 mmol/L (136-145) L 01/07/24 14:53 Potassium 3.3 mmol/L (3.5-5.1) L 01/07/24 14:53 Chloride 97 mmol/L (98-107) L 01/07/24 14:53 Carbon Dioxide 23 mmol/L (22-29) 01/07/24 14:53 Anion Gap 18.3 (5-19) 01/07/24 14:53 BUN 16 mg/dL (6-20) 01/07/24 14:53 Creatinine 0.8 mg/dL (0.5-0.9) 01/07/24 14:53 GFR Calculation 73.4 mL/min (90-130) L 01/07/24 14:53 Glucose 189 mg/dL (65-115) H 01/07/24 14:53 Calculated Osmolality 286 mOsm/kg (285-295) 01/07/24 14:53 Calcium 8.8 mg/dL (8.5-10.5) 01/07/24 14:53 Total Bilirubin 0.3 mg/dL (0.15-1.2) 01/07/24 14:53 AST 19 U/L (0-32) 01/07/24 14:53 ALT 23 U/L (0-33) 01/07/24 14:53 Alkaline Phosphatase 96 U/L (35-105) 01/07/24 14:53 Total Protein 6.8 g/dL (6.6-8.7) 01/07/24 14:53 Albumin 4.4 g/dL (3.5-5.2) 01/07/24 14:53 Globulin 2.4 g/dL (1.3-4.6) 01/07/24 14:53 Lipase 20 U/L (13-60) 01/07/24 14:53 Urine Color Yellow (Yellow) 01/07/24 17:00 Urine Appearance Clear (CLEAR) 01/07/24 17:00 Urine pH 5.0 (5-7) 01/07/24 17:00 Ur Specific Jachin 1.039 (1.005-1.030) H 01/07/24 17:00 Urine Protein Negative (Negative) 01/07/24 17:00 Urine Glucose (UA) 3+ (Normal) H 01/07/24 17:00 Urine Ketones Trace (Negative) 01/07/24 17:00 Urine Blood Negative (Negative) 01/07/24 17:00 Urine Nitrate Negative (Negative) 01/07/24 17:00 Urine Bilirubin Negative (Negative) 01/07/24 17:00 Urine Urobilinogen 1.0 mg/dL (Negative) 01/07/24 17:00 Ur Leukocyte Esterase Negative (Negative) 01/07/24 17:00 Urine RBC 5-10 /hpf (0-2) H 01/07/24 17:00 Urine WBC 0-5 /hpf (0-5) 01/07/24 17:00 Ur Squamous Epith Cells 0-5 /hpf (0-5) 01/07/24 17:00 Amorphous Sediment Not Reportable 01/07/24 17:00 Urine Bacteria None seen /hpf (NONE) 01/07/24 17:00 Hyaline Casts 2.87 /lpf 01/07/24 17:00 All radiology interpretation(s) finalized by discharge Discharge Plan Discharge Patient Disposition: Home Clinical Impression: Constipation Condition: Stable Prescriptions: New glycerin (adult) Suppository 1 supp DC DAILY PRN (Reason: constipation) Qty: 12 0RF polyethylene glycol 3350 [Miralax] 17 gram/dose powder 17 g PO DAILY Qty: 510 0RF Rx Instructions: Take 1-2 scoops daily for the next 3 months to keep stools soft No Action multivitamin Tablet 1 tab PO DAILY (DME) blood-glucose meter Misc See Rx Instructions .MEDSUPPLY Qty: 1 0RF Rx Instructions: Use as directed for checking blood sugar daily (DME) Blood Glucose Test Strip See Rx Instructions .MEDSUPPLY Qty: 200 12RF Rx Instructions: Use as directed with glucometer to check blood sugar daily (DME) lancets Misc See Rx Instructions .MEDSUPPLY Qty: 200 12RF Rx Instructions: Use as directed to prick skin for blood sugar checks daily polymyxin B sulf-trimethoprim 10,000 unit- 1 mg/mL drops 1 drp ophthalmic (eye) QID 7 Days Qty: 10 0RF (DME) Diabetic shoes and 3 inserts See Rx Instructions .Route .MEDSUPPLY Qty: 1 0RF Rx Instructions: As directed to H.O.M.E (DME) Diabetic shoes with inserts See Rx Instructions .Route .MEDSUPPLY Qty: 1 0RF Rx Instructions: As directed solifenacin [Vesicare] 10 mg tablet 10 mg PO DAILY Qty: 30 6RF acetaminophen [Tylenol] 325 mg tablet 325 mg PO QID PRN (Reason: pain) Qty: 30 0RF (DME) blood-glucose meter Kit See Rx Instructions .Route Qty: 1 0RF Rx Instructions: check blood sugar 1 time daily Ozempic 0.25 mg or 0.5 mg (2 mg/3 mL) pen injector See Rx Instructions SUBCUT .weekly Qty: 3 2RF Rx Instructions: 0.25mg weekly x 4 weeks then increase to 0.5mg weekly clotrimazole-betamethasone 1-0.05 % cream 1 applic topical BID PRN (Reason: psorasis) metformin 500 mg tablet 500 mg PO BID ketoconazole 2 % shampoo 1 applic topical .2 x weekly PRN (Reason: Rash) Rx Instructions: Lather into scalp 2 times weekly. Allow to sit on scalp for 5 minutes before rinsing. ketoconazole 2 % cream 1 applic topical BID PRN (Reason: Rash) Skyrizi 150 mg/mL Syringe 150 mg SUBCUT DIRECTED albuterol sulfate 90 mcg/actuation HFA aerosol inhaler 2 puff INHALATION Q4H PRN (Reason: Shortness Of Breath Or Wheezing) pantoprazole 40 mg tablet,delayed release (DR/EC) 40 mg PO DAILY hydrochlorothiazide 25 mg tablet 25 mg PO DAILY metoprolol tartrate 25 mg tablet 50 mg PO BID Jardiance 25 mg tablet 25 mg PO QAM Discharge Orders: Discharge ED (Routine); Ordered 01/07/24 Ordered By: Bruna Felix Referrals: Daysi Kilgore FNP [Primary Care Provider] - Discharge Diet: Usual diet Discharge Activity: Increase activity as tolerated Patient Instructions: Opioid Safety, Pain Management Activity Restrictions/Additional Instructions: Please take about a cup of GoLytely every 1-2 hours while awake for the next couple days until you have had good results. You need to increase your liquid intake significantly. Thank you for choosing [facility] for your healthcare needs today. Please realize this is an emergency room and that we are providing you with a medical screening exam and this may not be complete and all inclusive of all the testing and or work up that you may need to determine your ailment or severity of your illness. You have been screened and evaluated and felt safe for discharge. Health conditions do change or evolve sometimes and as such it is important that you follow up with your Primary Doctor to be re checked, 3-5 days is a general good time frame for follow up. You are always welcome to return to the ED for re assessment if your symptoms are worsening or you have new concerns Coding Level of Care Code ED Regional Controller for Andrea Mariano
[2024-01-07 15:19] LABS: Alanine Aminotransferase 23 U/L (0-33); Albumin Level 4.4 g/dL (3.5-5.2); Alkaline Phosphatase 96 U/L (35-105); Anion Gap 18.3 (5-19); Aspartate Amino Transferase 19 U/L (0-32); Blood Urea Nitrogen 16 mg/dL (6-20); Calcium 8.8 mg/dL (8.5-10.5); Carbon Dioxide 23 mmol/L (22-29); Chloride 97 mmol/L (98-107); Creatinine Clr Calc Pharmacy 79.2664; Globulin 2.4 g/dL (1.3-4.6); Glomerular Filtration Rate 73.4 mL/min (90-130); Glucose 189 mg/dL (65-115); Lipase 20 U/L (13-60); Osmolality Calculated 286 mOsm/kg (285-295); Potassium 3.3 mmol/L (3.5-5.1); Sodium 135 mmol/L (136-145); Total Bilirubin 0.3 mg/dL (0.15-1.2); Total Protein 6.8 g/dL (6.6-8.7)
[2024-01-07] MEDS: ketorolac 30 mg/mL INJ IVP (15:22)
[2024-01-07] MEDS: ondansetron 2 mg/ML SDV 2 mL 8 MG IVP (15:22)
--- NOTE | 2024-01-07 15:23 | CTR_ITS ---
PROCEDURE INFORMATION: Exam: CT Abdomen And Pelvis Without Contrast Exam date and time: 01/07/2024 5:44 PM Age: 58 years old Clinical indication: Abdominal pain TECHNIQUE: Imaging protocol: Computed tomography of the abdomen and pelvis without contrast. Radiation optimization: All CT scans at this facility use at least one of these dose optimization techniques: automated exposure control; mA and/or kV adjustment per patient size (includes targeted exams where dose is matched to clinical indication); or iterative reconstruction. COMPARISON: CT kidney stone [id number] 10/30/2020 11:55 PM RADIATION DOSE METRICS: Total DLP (mGy-cm): 768.53 FINDINGS: Liver: Markedly severe fatty infiltration of the liver measuring 17 Hounsfield units. The patient may be at risk for cirrhosis. Possible excess oral intake of ethanol and/or fructose. Gallbladder and biliary ducts: Multiple gallstones within the gallbladder. Pancreas: Normal. No ductal dilation. Spleen: Normal. No splenomegaly. Adrenal glands: Normal. No mass. Kidneys and ureters: One or more nonobstructing left renal calyceal stones. Stomach and bowel: Unremarkable. No obstruction. No mucosal thickening. Appendix: Normal appendix. Intraperitoneal space: Unremarkable. No free air. No significant fluid collection. Vasculature: Calcification of the abdominal aorta and/or iliac arteries consistent with atherosclerotic vessel disease. Lymph nodes: Unremarkable. No enlarged lymph nodes. Urinary bladder: Unremarkable as visualized. Reproductive: 8.0 cm low-density left uterine lesion most consistent with large uterine fibroid. Bones/joints: Right total hip replacement. Soft tissues: Unremarkable. CT/CT abdomen pelvis wo con [id number] IMPRESSION: 1. Markedly severe fatty infiltration of the liver measuring 17 Hounsfield units. The patient may be at risk for cirrhosis. Possible excess oral intake of ethanol and/or fructose. 2. Multiple gallstones within the gallbladder. 3. 8.0 cm low-density left uterine lesion most consistent with large uterine fibroid.
--- NOTE | 2024-01-07 16:35 | PC.PHAR ---
Pt states she still takes the medications on her list. Several have older fill dates and should be completely out of medication. last fill dates and days supply were entered in pharmacy notes.
[2024-01-07 18:44] LABS: Bilirubin Urine Negative (Negative); Blood Urine Negative (Negative); Glucose Urine UA 3+ (Normal); Ketones Urine Trace (Negative); Leukocyte Esterase Urine Negative (Negative); Nitrate Urine Negative (Negative); Protein Urine Negative (Negative); Urine Appearance Clear (CLEAR); Urine Color Yellow (Yellow)
[2024-01-07 18:48] LABS: Bacteria Urine None Seen /hpf; Hyaline Casts Urine 2.87 /lpf; Squamous Epithelial Cell Urine 0-5 /hpf (0-5); WBC Urine 0-5 /hpf (0-5)
[2024-01-07 18:58] VITALS: PULSE 90; RESP 16; O2SAT 96
[2024-01-07 19:09] LABS: Specific Gravity, Urine 1.039 (1.005-1.030)
[2024-01-07 19:18] VITALS: PULSE 74; O2SAT 98
[2024-01-07] MEDS: peg /e-lyte soln 4,000 mL Btl 4000 ML PO (19:34)
[2024-01-07] MEDS: mineral oil ENEMA 133 mL PR (19:34)
[2024-01-07 19:35] VITALS: BP 154/89; PULSE 74; O2SAT 96
== END 2024-01-07 19:36 | disposition home or self-care (01) ==
PROVIDERS: Emergency Medicine; Emergency Provider Emergency Medicine; PCP Nurse Practitioner Family
DX: K59.00 Constipation, unspecified (principal); Z72.0 Tobacco use; E11.9 Type 2 diabetes mellitus without complications; I10 Essential (primary) hypertension
CPT/HCPCS: 36415; 74018; 74176; 80053; 81001; 83690; 85025; 96374; 96375; 99285; J1885; J2405

== ENCOUNTER → 2024-01-20 13:44 | Outpatient (BNVA) | payer MEDICARE, SELFPAY | PROVIDERS: PCP Nurse Practitioner Family; Visit Provider Nurse Practitioner Family | DX: Z09 Encounter for follow-up examination after completed treatment for conditions other than malignant neoplasm (principal); R39.9 Unspecified symptoms and signs involving the genitourinary system; E11.65 Type 2 diabetes mellitus with hyperglycemia | CPT/HCPCS: 80053; 80061; 81000; 83036; 84443; 85025; 86705; 86706; 86709; 86803; 87086; 87340 ==

== ENCOUNTER 2024-02-03 08:45 | Outpatient (CLI) | payer MEDICARE, SELFPAY ==
--- NOTE | 2024-02-03 09:00 | US_ITS ---
WS: [id number] RIGHT UPPER QUADRANT ULTRASOUND HISTORY: R16.0 - Hepatomegaly, not elsewhere classified COMPARISON: None available. Liver: 18.0 cm in length. Enlarged liver is extremely dense and echogenic. Marked hepatic steatosis w hich was also noted on the CT of 01/07/2024. Hepatic steatosis has progressed since the ultrasound fro 2017. No mass identified. The entire liver is not well visualized. Portal Vein: Normal hepatopetal flow with monophasic waveform. Gallbladder: Normally distended with numerous stones. There are several stones deep in the gallbladde r neck. No pericholecystic fluid. CBD: 0.4 cm Pancreas: Completely obscured by bowel gas. Right kidney: 10.8 cm in length. Normal size and echogenicity. No hydronephrosis or mass. Aorta and IVC: Unremarkable abdominal aorta and IVC. No ascites. US/US liver [id number] IMPRESSION: 1. Cholelithiasis without acute cholecystitis. Without evidence for acute chol ecystitis. Numerous gallstones are present. Several of these gallstones are ave p in the gallbladder neck. Recommend surgical evaluation for cholecystectomy. 2. No bile duct dilatation. 3. Marked hepatic steatosis with moderate enlargement.
== END 2024-02-03 08:46 | disposition home or self-care (01) ==
PROVIDERS: PCP Nurse Practitioner Family; Visit Provider Nurse Practitioner Family
DX: R16.0 Hepatomegaly, not elsewhere classified (principal); K80.20 Calculus of gallbladder without cholecystitis without obstruction; K76.0 Fatty (change of) liver, not elsewhere classified
CPT/HCPCS: 76705

== ENCOUNTER → 2024-06-07 11:27 | Outpatient (BNVA) | payer MEDICARE, SELFPAY | PROVIDERS: PCP Nurse Practitioner Family; Visit Provider Nurse Practitioner Family | DX: L40.0 Psoriasis vulgaris (principal); E11.65 Type 2 diabetes mellitus with hyperglycemia | CPT/HCPCS: 80053; 80061; 82607; 83036; 84443; 85025; 85651; 86038; 86140; 86200; 86431 ==

== ENCOUNTER → 2024-07-28 14:35 | Outpatient (BNVA) | payer MEDICARE, SELFPAY | PROVIDERS: PCP Nurse Practitioner Family; Visit Provider Nurse Practitioner Family | DX: L40.0 Psoriasis vulgaris (principal); Z79.899 Other long term (current) drug therapy | CPT/HCPCS: 99213 ==